=== PATIENT | male | born 1960 | race Caucasian/White ===

== ENCOUNTER 2020-07-10 14:47 | Outpatient (REF) | payer BC, OTHER, SELFPAY | END 2020-07-10 14:48 | disposition home or self-care (01) | LOC: HO.LAB 14:47 | PROVIDERS: Visit Provider Internal Medicine | DX: Z20.828 Contact with and (suspected) exposure to other viral communicable diseases (principal) | CPT/HCPCS: C9803; U0003 ==

== ENCOUNTER 2022-11-22 01:19 | Emergency (ER) | payer OTHER, SELFPAY ==
--- NOTE | ~2022-11-22 | CT_ITS ---
EXAMINATION: CT ABDOMEN AND PELVIS WITHOUT CONTRAST CLINICAL INFORMATION: Left flank pain COMPARISON: 12/28/2016 TECHNIQUE: Multidetector volumetric imaging was performed from the superior aspect of the liver through the pubic symphysis. Sagittal and coronal reformatted images were obtained on the technologist's workstation. This CT examination was performed using dose optimization techniques as appropriate, variously including the following: *Automated exposure control *Adjustment of mA and/or kV according to patient size (this includes techniques or standardized protocols for targeted exams where dose is matched to indication/reason for exam; i.e. extremities or head) *Use of iterative reconstruction technique DLP: 740 mGy-cm FINDINGS: LUNG BASES: The visualized lung bases are unremarkable. LIVER, GALLBLADDER, AND BILIARY TREE: The liver demonstrates hypoattenuation consistent with steatosis. No focal hepatic lesion or biliary ductal dilatation is identified. The gallbladder is unremarkable. PANCREAS: Unremarkable. SPLEEN: Unremarkable. ADRENAL GLANDS: Unremarkable. KIDNEYS AND URETERS: There is a 3 mm calculus at the left ureterovesicular junction with minimal hydronephrosis and associated perinephric stranding. No right hydronephrosis. Few bilateral renal cysts are noted; no follow-up recommended. BLADDER: Mildly distended and grossly unremarkable. GASTROINTESTINAL TRACT: No evidence of bowel obstruction or significant wall thickening. No free fluid or free air is seen. ABDOMINAL WALL: No significant hernia is appreciated. LYMPH NODES: Normal. VASCULAR: Moderate atherosclerotic calcifications. PELVIC VISCERA: Unremarkable. OSSEOUS STRUCTURES: Multilevel degenerative endplate changes in the spine. CT/CT abdomen pelvis wo IV con IMPRESSION: 1. Left ureterovesicular junction calculus measuring 3 mm with minimal hydronephrosis. 2. Hepatic steatosis.
[2022-11-22 01:21] VITALS: BP 179/80; PULSE 64; RESP 18; TEMP 36.8; O2SAT 95; BMI 27.8
[2022-11-22 02:31] LABS: MANUAL DIFF FLAG NO
[2022-11-22 02:35] LABS: Basophils Percent Auto 0.4 % (0-2); Eosinophils Absolute Auto 0.2 X10*3/uL (0.0-0.4); Eosinophils Percent Auto 1.7 % (0-4); Hematocrit 44.8 % (42.0-52.0); Hemoglobin 16.2 g/dl (14.0-18.0); Imm Gran Abs Auto 0.06 X10*3/uL (0.00-0.03); Imm Gran Pct Auto 0.6 % (0.0-0.4); Lymphocytes Percent Auto 18.2 % (20-40); Mean Corpuscular HGB Conc 36.2 g/dl (31.0-36.0); Mean Corpuscular Hemoglobin 33.3 pg (27.0-33.0); Mean Corpuscular Volume 92.2 fL (80.0-98.0); Mean Platelet Volume 10.1 fL (9.4-12.4); Monocytes Absolute Auto 1.1 X10*3/uL (0.1-1.2); Monocytes Percent Auto 9.6 % (2-11); Neutrophils Absolute Auto 7.6 x10*3/uL (2.0-8.3); Neutrophils Percent Auto 69.5 % (45-73); Platelet Count 211 X10*3/uL (160-400); Red Blood Count 4.86 X10*6/uL (4.60-5.80); Red Cell Distribution Width 11.7 % (11.0-16.0); White Blood Count 10.9 X10*3/uL (4.8-10.8)
--- OUTSIDE RECORDS SUMMARY | 2022-11-22 02:35 | XMS_ITS | Continuity of Care Document ---
Author Name Unknown Organization [facility] Address [address] [place] [address]- Care Team Providers Care Consultant Internship Name Role Phone Cem TERRELL, Reynaldo Rebolledo Primary Care Physician [phone] Encounter [facility] [place] Date(s): 07/11/20 - 08/10/20 [facility] [address] [place] [id number] Allergies, Adverse Reactions, Alerts Substance Reaction Severity Status gabapentin Persistent Moderate Active Immunizations Given and Recorded Vaccine Date Status Refusal Reason influenza virus vaccine, inactivated 06/23/11 Give n Medications acetaminophen 325 mg oral tablet 650 mg, By Mouth, Every 4 hours, PRN, Refills 0, Maintenance, Headache, 09/24/18 14:25:37 EDT Start Date: 09/24/18 Status: Ordered Centrum Silver By Mouth, Daily, 0 Refills, Maintenance, 09/23/18 17:25:39 EDT Start Date: 09/23/18 Status: Ordered Colace sodium 100 mg oral capsule 100 mg, 1, capsule, By Mouth, 2 times a day, # 14 capsule, Refills 0, Tot. Refills 0, Maintenance, 09/24/18 14:01:01 EDT, Print Requisition Start Date: 09/24/18 Stop Date: 10/01/18 Status: Ordered fenofibrate 40 mg oral tablet 4 tablet = 160 mg, By Mouth, Daily, # 60 tablet, 0 Refills, Maintenance, 09/23/18 17:27:51 EDT, Tablet Start Date: 09/23/18 Status: Ordered levothyroxine 0.025 mg oral tablet 1 tablet = 25 mcg, By Mouth, Daily, # 30 tablet, 0 Refills, Maintenance, 09/23/18 17:26:05 EDT, Tablet Start Date: 09/23/18 Status: Ordered levothyroxine 0.1 mg oral tablet 1 tablet = 100 mcg, By Mouth, Daily, # 30 tablet, 0 Refills, Maintenance, 09/23/18 17:27:00 EDT, Tablet Start Date: 09/23/18 Status: Ordered Levoxyl 200 mcg, By Mouth, Daily, Maintenance, 06/21/11 12:28:38 Start Date: 06/21/11 Status: Ordered meclizine 12.5 mg oral tablet See Instructions, PRN for dizziness, 1/2 tablet - up to three times a day - only take as needed, # 20 tablet, 0 Refills, Maintenance, 05/13/19 16:15:44 EDT, Tablet Start Date: 05/13/19 Status: Ordered Nexium Capsule 20 mg, By Mouth, Daily, Refills 0, Maintenance, 09/23/18 17:28:34 EDT Start Date: 09/23/18 Status: Ordered Omeprazole = 20 mg, By Mouth, Daily, 0 Refills, Maintenance Start Date: 06/21/11 Status: Ordered Outpatient Occupational Therapy Outpatient Occupational Therapy, See Instructions, # 1 each, Refills 0, Tot. Refills 0, Maintenance, Outpatient Occupational Therapy, 09/24/18 13:56:46 EDT, Compound Start Date: 09/24/18 Status: Ordered Outpatient Physical Therapy Outpatient Physical Therapy, See Instructions, # 1 each, Refills 0, Tot. Refills 0, Maintenance, Outpatient Physical Therapy, 09/24/18 13:56:42 EDT, Compound Start Date: 09/24/18 Status: Ordered Outpatient Speech Therapy Outpatient Speech Therapy, See Instructions, # 1 each, Refills 0, Tot. Refills 0, Maintenance, Outpatient Speech Therapy, 09/24/18 13:56:49 EDT, Compound Start Date: 09/24/18 Status: Ordered Probiotic Formula By Mouth, Daily, 0 Refills, Maintenance, 09/16/19 16:09:00 EST Start Date: 09/16/19 Status: Ordered topiramate 25 mg oral capsule See Instructions, 2 capsules by mouth twice daily, # 120 capsule, 3 Refills, Maintenance, 01/01/19 13:08:10 EDT, Capsule Start Date: 01/01/19 Status: Ordered TriCor 48 mg oral tablet 1 tablet = 48 mg, By Mouth, Daily, 0 Refills, Maintenance Start Date: 06/21/11 Status: Ordered Vitamin B2 By Mouth, Daily, 0 Refills, Maintenance, 09/16/19 16:09:00 EST Start Date: 09/16/19 Status: Ordered Problem List Condition Effective Dates Status Health Status Inform ant Acute adjustment disorder wi th mixed anxiety and depressed mood(Confirmed) Active Sleep disturbance(Confirmed) Active Dizziness(Confirmed) Active MCI (mild cognitive impairment)(Confirmed) Active Myofascial pain(Confirmed) Active Arm numbness(Confirmed) Active Post-traumatic headache(Confirmed) Active Prolapsed cervical intervert ebral disc(Confirmed) Active Mild TBI(Confirmed) Active Social History Social History Type Response Sex Male
--- OUTSIDE RECORDS SUMMARY | 2022-11-22 02:35 | XMS_ITS | Continuity of Care Document ---
Author Name Unknown Organization [facility] Address [address] [place] [address]- Care Team Providers Care Master Of Ceremonies Name Role Phone Cem TERRELL, Reynaldo Rebolledo Primary Care Physician [id number] Date(s): 11/25/19 - 12/02/19 [facility] [address] [place] [address]- [facility] Attending Physician: Kevin Rogers MD Referring Physician: Reynaldo Priest MD Allergies, Adverse Reactions, Alerts Substance Reaction Severity [...]
--- OUTSIDE RECORDS SUMMARY | 2022-11-22 02:35 | XMS_ITS | Continuity of Care Document ---
Author Name Unknown Organization [facility] lt Address [address] [place] [address]- Care Team Providers Care Apparel Rental Clerk Name Role Phone Alem Payton Primary Care Physician Encounter [facility] R [id number] Date(s): 04/03/22 - 05/03/22 [facility] Adult [address] [place] [address]- Attending Physician: Admtr, Ar8 Admitting Physician: Admtr, Ar8 Referring Physician: Admtr, Ar8 Allergies, Adverse Reactions, Alerts Substance Reaction Severity Status gabapentin Persistent Moderate Active Immunizations Given and Recorded Vaccine Date Status Refusal Reason SARS-CoV-2 (COVID-19) mRNA BNT-162b2 vac 07/05/21 Recorded SARS-CoV-2 (COVID-19) mRNA BNT-162b2 vac 11/10/20 Recorded SARS-CoV-2 (COVID-19) mRNA BNT-162b2 vac 10/20/20 Recorded influenza virus vaccine, inactivated 06/23/11 Give n Medications amlodipine-benazepril 5 mg-20 mg oral capsule 1 capsule, By Mouth, Daily, # 90 capsule, 3 Refills, Maintenance, 03/29/21 11:14:00 EDT, Capsule, [facility] # [id number], Partial fill upon patient request if the prescription is for a schedule II opioid drug., 1 capsule By Mouth Daily, 169.6, cm, 03/14... Start Date: 03/29/21 Status: Ordered Centrum Silver By Mouth, Daily, 0 Refills, Maintenance, 09/23/18 17:25:39 EDT Start Date: 09/23/18 Status: Ordered fenofibrate 160 mg oral tablet 1 tablet, By Mouth, Daily, # 30 tablet, 5 Refills, [facility] #[id number], 169.6, cm, 11/28/21 14:37:00 EDT, Height Start Date: 02/28/22 Status: Ordered indapamide 1.25 mg oral tablet 1 tablet = 1.25 mg, By Mouth, Daily in AM, # 90 tablet, 3 Refills, Maintenance, 04/12/21 9:59:00 EDT, Tablet, [facility] # 302, Partial fill upon patient request if the prescription is for a schedule II opioid drug., 169.6, cm, 03/29/21 11:33:00... Start Date: 04/12/21 Status: Ordered levothyroxine 0.025 mg oral tablet See Instructions, 1 tablet By Mouth ON FRIDAY AND FRIDAY. TAKE WITH 200 MCG TABLETS FOR A TOTAL OF 225 MCG ON MONDAYS AND THURSDAYS., # 12 tablet, 11 Refills, Maintenance, 02/14/22 15:13:00 EDT, Tablet, [facility] # 302, Partial fill upon benjamin... Start Date: 02/14/22 Status: Ordered levothyroxine 200 mcg (0.2 mg) oral capsule 1 capsule = 200 mcg, By Mouth, Daily, # 90 capsule, 3 Refills, Maintenance, 02/14/22 17:26:00 EDT, Capsule, [facility] # 302, Partial fill upon patient request if the prescription is for a schedule II opioid drug., 169.6, cm, 11/28/21 14:37:00 ED... Start Date: 02/14/22 Status: Ordered Levoxyl 200 mcg, By Mouth, Daily, Maintenance, 06/21/11 12:28:38 Start Date: 06/21/11 Status: Ordered omeprazole 20 mg oral enteric coated capsule 1 capsule, By Mouth, Daily, # 90 capsule, 0 Refills, [facility] #[id number], 169.6, cm, 11/28/21 14:37:00 EDT, Height Start Date: 02/07/22 Status: Ordered sildenafil 25 mg oral tablet 1 tablet = 25 mg, By Mouth, Daily, 1 hour before sexual activity, # 10 tablet, 3 Refills, Maintenance, 04/09/22 16:33:00 EDT, Tablet, [facility] # 302, Partial fill upon patient request if the prescription is for a schedule II opioid drug., 169.6... Start Date: 04/09/22 Status: Ordered Vitamin C By Mouth, Daily, 0 Refills, Maintenance, 03/29/21 10:53:00 EDT, Partial fill upon patient request if the prescription is for a schedule II opioid drug. Start Date: 03/29/21 Status: Ordered Vitamin D3 oral tablet 1 tablet = 10 mcg, By Mouth, Daily, 0 Refills, Maintenance, 03/29/21 10:54:00 EDT, Partial fill upon patient request if the prescription is for a schedule II opioid drug. Start Date: 03/29/21 Status: Ordered Problem List Condition Confirmation Course Effective Dates Status Health Status Informant Acute adjustment disorder with mixed anxiety and depressed mood Confirmed Active Sleep disturbance Confirmed Active Not currently working due to disabled status Confirmed Active Chronic GERD Confirmed Active Graves' disease in remission Confirmed Active Hypertension Confirmed Active Hypertriglyceridemia Confirmed Active Hypothyroidism Confirmed Active MCI (mild cognitive impairment) Confirmed Active Myofascial pain Confirmed Active Arm numbness Confirmed Active Obese class II Confirmed Active Post-traumatic headache Confirmed Active Prediabetes Confirmed Active Prolapsed cervical intervertebral disc Confirmed Active Mild TBI Confirmed Active Social History Social History Type Response Smoking Status Cigars or pipes uriel y within last 30 days; Use: Cigars 2 a week Quit tobacco 15 years ago entered on: 03/29/21 Sex Male Patient Care team information Personnel Name: Alem Payton Address: Address: [address] [place] [id number]
--- OUTSIDE RECORDS SUMMARY | 2022-11-22 02:35 | XMS_ITS | Continuity of Care Document ---
Author Name Unknown Organization [facility] lt Address [address] [place] [address]- Care Team Providers Care Equipment Tech Name Role Phone Alem Payton Primary Care Physician Encounter [facility] [place] Date(s): 04/08/22 - 05/08/22 [facility] Adult [address] [place] [address]- Allergies, Adverse Reactions, Alerts Substance Reaction Severity [...] 3 Refills, Maintenance, 03/29/21 11:14:00 EDT, Capsule, [facility] # 302, Partial fill upon patient request if the prescription is for a schedule II opioid drug., 1 capsule By Mouth Daily, 169.6, cm, 03/14... Start Date: 03/29/21 Status: Ordered Centrum Silver By Mouth, Daily, 0 Refills, Maintenance, 09/23/18 17:25:39 EDT Start Date: 09/23/18 Status: Ordered fenofibrate 160 mg oral tablet 1 tablet, By Mouth, Daily, # 30 tablet, 5 Refills, [facility] #[id number], 169.6, cm, 11/28/21 14:37:00 EDT, Height Start Date: 02/28/22 Status: Ordered indapamide 1.25 mg oral tablet 1 tablet = 1.25 mg, By Mouth, Daily in AM, # 90 tablet, 3 Refills, Maintenance, 04/12/21 9:59:00 EDT, Tablet, [facility] # [facility], Partial fill upon patient [...] 11 Refills, Maintenance, 02/14/22 15:13:00 EDT, Tablet, [facility] # 302, Partial fill upon benjamin... Start Date: 02/14/22 Status: Ordered levothyroxine 200 mcg (0.2 mg) oral capsule 1 capsule = 200 mcg, By Mouth, Daily, # 90 capsule, 3 Refills, Maintenance, 02/14/22 17:26:00 EDT, Capsule, [facility] # 302, Partial fill upon patient request if the prescription is for a schedule II opioid drug., 169.6, cm, 11/28/21 14:37:00 ED... Start Date: 02/14/22 Status: Ordered Levoxyl 200 mcg, By Mouth, Daily, Maintenance, 06/21/11 12:28:38 Start Date: 06/21/11 Status: Ordered omeprazole 20 mg oral enteric coated capsule 1 capsule, By Mouth, Daily, # 90 capsule, 0 Refills, [facility] #[id number], 169.6, cm, 11/28/21 14:37:00 EDT, Height Start Date: 02/07/22 Status: Ordered sildenafil 25 mg oral tablet 1 tablet = 25 mg, By Mouth, Daily, 1 hour before sexual activity, # 10 tablet, 3 Refills, Maintenance, 04/09/22 16:33:00 EDT, Tablet, [facility] # 302, Partial fill upon patient [...] information Personnel Name: Alem Payton Address: Address: [address] [place] [id number]
--- OUTSIDE RECORDS SUMMARY | 2022-11-22 02:35 | XMS_ITS | Continuity of Care Document ---
Author Name Unknown Organization [facility] lt Address [address] [place] [address]- Care Team Providers Care Audio/Visual Manager Name Role Phone Alem Payton Primary Care Physician [phone] Encounter [facility] [place] Date(s): 11/28/21 - 12/28/21 [facility] Adult [address] [place] [address]- Allergies, Adverse Reactions, Alerts Substance Reaction Severity Status gabapentin Persistent Moderate Active Immunizations Given and Recorded Vaccine Date Status Refusal Reason SARS-CoV-2 (COVID-19) mRNA BNT-162b2 vac 11/10/20 Recorded SARS-CoV-2 (COVID-19) mRNA BNT-162b2 vac 10/20/20 Recorded influenza virus vaccine, inactivated 06/23/11 Give n Medications amlodipine-benazepril 5 mg-20 mg oral capsule 1 capsule, By Mouth, Daily, # 90 capsule, 3 Refills, Maintenance, 03/29/21 11:14:00 EDT, Capsule, [facility] # 302, Partial fill upon patient request if the prescription is for a schedule II opioid drug., 1 capsule By Mouth Daily, 169.6, cm, 03/14... Start Date: 03/29/21 Status: Ordered Centrum Silver By Mouth, Daily, 0 Refills, Maintenance, 09/23/18 17:25:39 EDT Start Date: 09/23/18 Status: Ordered fenofibrate 160 mg oral tablet 1 tablet = 160 mg, By Mouth, Daily, # 30 tablet, 3 Refills, Maintenance, 11/07/21 16:35:00 EDT, Tablet, [facility] # 302, Partial fill upon patient request if the prescription is for a schedule II opioid drug., 169.6, cm, 03/29/21 11:33:00 EDT, H... Start Date: 11/07/21 Status: Ordered indapamide 1.25 mg oral tablet 1 tablet = 1.25 mg, By Mouth, Daily in AM, # 90 tablet, 3 Refills, Maintenance, 04/12/21 9:59:00 EDT, Tablet, [facility] # 302, Partial fill upon patient request if the prescription is for a schedule II opioid drug., 169.6, cm, 03/29/21 11:33:00... Start Date: 04/12/21 Status: Ordered levothyroxine 0.025 mg oral tablet See Instructions, 1 tablet By Mouth ON FRIDAY AND FRIDAY. TAKE WITH 200 MCG TABLETS FOR A TOTAL OF 225 MCG ON MONDAYS AND THURSDAYS., # 12 tablet, 11 Refills, Maintenance, 05/03/21 17:08:00 EDT, Tablet, [facility] # 302, Partial fill upon benjamin... Start Date: 05/03/21 Status: Ordered Levoxyl 200 mcg, By Mouth, Daily, Maintenance, 06/21/11 12:28:38 Start Date: 06/21/11 Status: Ordered Omeprazole = 20 mg, By Mouth, Daily, 0 Refills, Maintenance Start Date: 06/21/11 Status: Ordered Vitamin C By Mouth, Daily, [...] Date: 03/29/21 Status: Ordered Problem List Condition Effective Dates Status Health Status Inform ant Acute adjustment disorder wi th mixed anxiety and depressed mood(Confirmed) Active Sleep disturbance(Confirmed) Active Not currently working due to disabled status(Confirmed) Active Graves' disease in remission(Confirmed) Active Hypertension(Confirmed) Active Hypothyroidism(Confirmed) Active MCI (mild cognitive impairment)(Confirmed) Active Myofascial pain(Confirmed) Active Arm numbness(Confirmed) Active Obese class II(Confirmed) Active Post-traumatic headache(Confirmed) Active Prolapsed cervical intervert ebral disc(Confirmed) Active Mild TBI(Confirmed) Active Social History Social History Type Response Smoking Status Cigars or pipes uriel y within last 30 days; Use: Cigars 2 a week Quit tobacco 15 years ago entered on: 03/29/21 Sex Male
--- OUTSIDE RECORDS SUMMARY | 2022-11-22 02:35 | XMS_ITS | Continuity of Care Document ---
Author Name Unknown Organization [facility] lt Address [address] [place] [address]- Care Team Providers Care Vehicle Service Agent Name Role Phone Alem Payton Primary Care Physician Encounter [facility] [place] Date(s): 11/28/21 - 12/05/21 [facility] Adult [address] [place] [address]- Attending Physician: Pete Garces MD Referring Physician: Alem Payton Allergies, Adverse Reactions, Alerts Substance Reaction Severity [...] 3 Refills, Maintenance, 03/29/21 11:14:00 EDT, Capsule, [facility] # 302, Partial fill upon patient request if the prescription is for a schedule II opioid drug., 1 capsule By Mouth Daily, 169.6, cm, 03/14... Start Date: 03/29/21 Status: Ordered Centrum Silver By Mouth, Daily, 0 Refills, Maintenance, 09/23/18 17:25:39 EDT Start Date: 09/23/18 Status: Ordered ciprofloxacin 0.2% otic solution 1 application, Ears, Both, Every 12 hours, for 7 days, # 28 each, 0 Refills, Acute 12/06/21 9:00:00EDT, 11/29/21 9:00:00 EDT, Solution, [facility] # 302, Partial fill upon patient request if the prescription is for a schedule II opioid drug., 1... Start Date: 11/29/21 Stop Date: 12/06/21 Status: Ordered fenofibrate 160 mg oral tablet 1 tablet = 160 mg, By Mouth, Daily, # 30 tablet, 3 Refills, Maintenance, 11/07/21 16:35:00 EDT, Tablet, [facility] # 302, Partial fill upon patient request if the prescription is for a schedule II opioid drug., 169.6, cm, 03/29/21 11:33:00 EDT, H... Start Date: 11/07/21 Status: Ordered indapamide 1.25 mg oral tablet 1 tablet = 1.25 mg, By Mouth, Daily in AM, # 90 tablet, 3 Refills, Maintenance, 04/12/21 9:59:00 EDT, Tablet, [facility] # 302, Partial fill upon patient [...] 11 Refills, Maintenance, 05/03/21 17:08:00 EDT, Tablet, [facility] # 302, Partial fill upon benjamin... [...] intervert ebral disc(Confirmed) Active Mild TBI(Confirmed) Active Vital Signs Most recent to oldest [Reference Range]: 1 Height 169.6 cm (11/28/21 2:37 PM) Weight 105.8 kg (11/28/21 2:37 PM) Oxygen Saturation [94-100 %] 98 % (11/28/21 2:37 PM) Pulse Rate [55-90 bpm] 65 bpm (11/28/21 2:37 PM) Body Mass Index [18.5-24.99] 36.78 *>HHI* (11/28/21 2:37 PM) Blood Pressure [90-138/55-84 mm Hg] 147/ 64mm Hg *H* (11/28/21 2:37 PM) Temperature [96.8-100.4 DegF] 98.9 DegF (11/28/21 2:37 PM) Blood pressure sites Arm, right (11/28/21 2:37 PM) Temperature Route Temporal (11/28/21 2:37 PM) Weight Obtained Via Standing scale (11/28/21 2:37 PM) Social History Social History Type Response Smoking Status Cigars or pipes uriel y within last 30 days; Use: Cigars 2 a week Quit tobacco 15 years ago entered on: 03/29/21 Sex Male
--- OUTSIDE RECORDS SUMMARY | 2022-11-22 02:35 | XMS_ITS | Continuity of Care Document ---
Author Name Unknown Organization [facility] Address [address] [place] [address]- Care Team Providers Care Janitorial Services Supervisor Name Role Phone Cem TERRELL, Reynaldo Rebolledo Primary Care Physician [facility] Date(s): 01/27/19 - 06/27/[address] [address]- [facility] Discharge Disposition: A-D/C Home Attending Physician: Reynaldo Priest MD Admitting Physician: Reynaldo Priest MD Referring Physician: Reynaldo Priest MD Allergies, [...] EDT, Compound Start Date: 09/24/18 Status: Ordered topiramate 25 mg oral capsule See Instructions, 2 capsules by mouth twice daily, # 120 capsule, 3 Refills, Maintenance, 01/01/19 13:08:10 EDT, Capsule Start Date: 01/01/19 Status: Ordered TriCor 48 mg oral tablet 1 tablet = 48 mg, By Mouth, Daily, 0 Refills, Maintenance Start Date: 06/21/11 Status: Ordered Problem List Condition Effective Dates [...]
--- OUTSIDE RECORDS SUMMARY | 2022-11-22 02:35 | XMS_ITS | Continuity of Care Document ---
Author Name Unknown Organization [facility] lt Address [address] [place] [address]- Care Team Providers Care Dredge Hand Name Role Phone Alem Payton Primary Care Physician [place] [facility] [place] 07/31/22 - 08/07/22 [facility] Adult [address] [place] [address]- Encounter Diagnosis Hypertension(Discharge Diagnosis) - 07/31/22 Left knee pain(Discharge Diagnosis) - 07/31/22 Attending Physician: Jason Tariq Allergies, Adverse Reactions, Alerts Substance Reaction Severity [...] Daily, # 90 capsule, 3 Refills, Maintenance, 07/24/22 8:47:00 EST, Capsule, [facility] # [facility], Partial fill upon patient request if the prescription is for a schedule II opioid drug., 1 capsule By Mouth Daily, 169.6, cm, 06/12... Start Date: 07/24/22 Status: Ordered Centrum Silver By Mouth, Daily, 0 Refills, Maintenance, 09/23/18 17:25:39 EDT Start Date: 09/23/18 Status: Ordered fenofibrate 160 mg oral tablet 1 tablet, By Mouth, Daily, # 30 tablet, 5 Refills, [facility] #[id number], 169.6, cm, 11/28/21 14:37:00 EDT, Height Start Date: 02/28/22 Status: Ordered indapamide 1.25 mg oral tablet 1 tablet, By Mouth, Daily in AM, # 90 tablet, 0 Refills, Maintenance, 05/20/22 15:10:00 EST, [facility] #[id number], 169.6, cm, 04/03/22 10:42:00 EDT, Height Start Date: 05/20/22 Status: Ordered levothyroxine 0.025 mg oral tablet See Instructions, 1 tablet By Mouth ON FRIDAY AND FRIDAY. TAKE WITH 200 MCG TABLETS FOR A TOTAL OF 225 MCG ON MONDAYS AND THURSDAYS., # 12 tablet, 11 Refills, Maintenance, 02/14/22 15:13:00 EDT, Tablet, [facility] # [facility], Partial fill upon benjamin... Start Date: 02/14/22 Status: Ordered levothyroxine 200 mcg (0.2 mg) oral capsule 1 capsule = 200 mcg, By Mouth, Daily, # 90 capsule, 3 Refills, Maintenance, 02/14/22 17:26:00 EDT, Capsule, [facility] # [facility], Partial fill upon patient request if the prescription is for a schedule II opioid drug., 169.6, cm, 11/28/21 14:37:00 ED... Start Date: 02/14/22 Status: Ordered Levoxyl 200 mcg, By Mouth, Daily, Maintenance, 06/21/11 12:28:38 Start Date: 06/21/11 Status: Ordered omeprazole 20 mg oral enteric coated capsule 1 capsule, By Mouth, Daily, # 90 capsule, 0 Refills, Maintenance, 05/20/22 15:10:00 EST, [facility] #[id number], 169.6, cm, 04/03/22 10:42:00 EDT, Height Start Date: 05/20/22 Status: Ordered sildenafil 25 mg oral tablet 1 tablet = 25 mg, By Mouth, Daily, 1 hour before sexual activity, # 10 tablet, 3 Refills, Maintenance, 04/09/22 16:33:00 EDT, Tablet, [facility] # [facility], Partial fill upon patient [...] pain Confirmed Active Arm numbness Confirmed Active Post-traumatic headache Confirmed Active Prediabetes Confirmed Active Prolapsed cervical intervertebral disc Confirmed Active Severe obesity (BMI 35.0-39.9) with comorbidity Confirmed Active Mild TBI Confirmed Active Diagnosis Diagnosis Type Effective Dates Health Status Cl inical Service Informant Hypertension Discharge Diagnosis 07/31/22 Left knee pain Discharge Diagnosis 07/31/22 Vital Signs Most recent to oldest [Reference Range]: 1 2 3 Height 169.6 cm (07/31/22 1:56 PM) 169.6 cm (07/31/22 1:33 PM) 169.6 cm (07/31/22 1:23 PM) Weight 104.5 kg (07/31/22 1:23 PM) Oxygen Saturation [94-100 %] 98 % (07/31/22 1:23 PM) Pulse Rate [55-90 bpm] 58 bpm (07/31/22 1:23 PM) Body Mass Index [18.5-24.99 kg/m2] 36.33 kg/m2 *>HHI* (07/31/22 1:23 PM) Blood Pressure [90-138/55-84 mm Hg] 138/62mm Hg (07/31/22 1:56 PM) 158/66mm Hg *H* (07/31/22 1:33 PM) 167/77mm Hg *H* (07/31/22 1:23 PM) Temperature [96.8-100.4 DegF] 97.6 DegF (07/31/22 1:23 PM) Mode of Delivery (Oxygen) Room air (07/31/22 1:23 PM) Blood pressure sites Arm, left (07/31/22 1:33 PM) Arm, left (07/31/22 1:23 PM) Temperature Route Temporal (07/31/22 1:23 PM) Weight Obtained Via Standing scale (07/31/22 1:23 PM) Social History Social History Type Response Smoking Status Cigars or pipes uriel y within last 30 days; Use: Cigars 2 a week Quit tobacco 15 years ago entered on: 03/29/21 Sex Male Note * Olesya Dietz: PERFORM, SIGN, VERIFY Event Display: Patient Education/Instruction Authored Date: [id number] [facility] *BMP So David Baca Clinical Summary Name MELIDA WHITE Age 62 Years 1960 PCP Skip JOHNSON, Alem Phan PCP Visit Date 07/31/2022 13:18:00 Additional Instructions: Scheduled Appointments?? Future Appointments ?No Future Appointments Scheduled Follow-Up Instructions ?? Diagnosis Essential (primary) hypertension Medications: Please continue your medications until treatment is completed or stopped by your provider. Discuss any questions related to medications with your provider. Medications to Continue with No Changes These medications were not printed or sent to your pharmacy Amlodipine-Benazepril (amlodipine-benazepril 5 mg-20 mg oral capsule) 1 capsule Oral Daily. Refills: 3. Next Dose: Ascorbic Acid (Vitamin C) Oral Daily. Next Dose: Cholecalciferol (Vitamin D3 oral tablet) 1 tab(s) Oral Daily. Next Dose: Fenofibrate (fenofibrate 160 mg oral tablet) 1 tab(s) Oral Daily. Refills: 5. Next Dose: Indapamide (indapamide 1.25 mg oral tablet) 1 tab(s) Oral Daily in the morning. Refills: 0. Next Dose: Levothyroxine (levothyroxine 0.025 mg oral tablet) 1 tablet By Mouth ON FRIDAY AND FRIDAY. TAKE WITH 200 MCG TABLETS FOR A TOTAL OF 225 MCG ON MONDAYS AND THURSDAYS.. Refills: 11. Next Dose: Levothyroxine (levothyroxine 200 mcg (0.2 mg) oral capsule) 1 capsule Oral Daily. Refills: 3. Next Dose: Levothyroxine (Levoxyl) 200 Microgram Oral Daily. Next Dose: Multivitamin With Minerals (Centrum Silver) Oral Daily. Next Dose: Omeprazole (omeprazole 20 mg oral enteric coated capsule) 1 capsule Oral Daily. Refills: 0. Next Dose: Sildenafil (sildenafil 25 mg oral tablet) 1 tab(s) Oral Daily. 1 hour before sexual activity. Refills: 3. Next Dose: Allergy Info:?? gabapentin Medications Given This Visit Future Orders ?No future orders Vital Signs Height 169.6 cm Weight 104.5 kg BMI 36.33 kg/m2 Blood Pressure 138 mm Hg/62 mm Hg Temperature 97.6 DegF Pulse Rate 58 bpm Respiratory Rate 02 Sat Mode of Delivery 98 %/Room air You can now view a summary of your hospital visit from the comfort of your home through a free online portal called [employer]. [employer] is a website that allows you to securely view your medical information including discharge summary, medications and follow-up visits. ??You can alsosend a secure electronic message to your doctor???s office to request appointments, renew medications or just ask a question. You can enroll at [email or web address] or register during your next office visit. Disclaimer:?? The information provided is of a general nature and is intended to be used in conjunction with the recommendations and advice of your health care practitioner. ??Every effort has been made to ensure that the information provided is accurate and complete at the time it is provided to you however, as your needs change, or, as new ??information becomes available, different or additional instructions may be required. If you have questions, please consult with your primary care provider or pharmacist, as appropriate. ??This information is not intended to serve as substitution for assessment and evaluation by a qualified health care provider. If you do not have a primary care provider, you may find a [facility] provider by calling [facility] [employer] Link at [phone]. For information about the plan of care including goals and instructions for your diagnosis, please see the patient education orders section of this document. Patient Education Materials?? The content of this educational material or handout may have been modified, supplemented, or adapted from its original content and format to support your individualized medical care. Patient Care team information Care Team Personnel Name: Ese Rodríguez RN Position: [facility] RN Member Role: Primary Care Nurse Name: Sharee Guillen Position: [facility] Outreach Member Role: Lifetime Consulting Physician Name: Mattie Gonzalez RN Position: [facility] Rad RN Member Role: Primary Care Nurse Name: Alem Payton Position: [facility] PCO Associate Professional Member Role: PCP Address: Address: [address] [place] [address]- Care Team Related Persons Name: JACKLYN BAILEY Address: [place] [address] Name: JACKLYN WHITE Address: home [address] [place] [id number]
--- OUTSIDE RECORDS SUMMARY | 2022-11-22 02:35 | XMS_ITS | Continuity of Care Document ---
Author Name Unknown Organization [facility] lt Address [address] [place] [address]- Care Team Providers Care Syrup Maker Cook Name Role Phone Alem Payton Primary Care Physician Encounter [facility] [place] Date(s): 07/23/22 - 08/22/22 [facility] Adult [address] [place] [address]- Allergies, Adverse Reactions, Alerts Substance Reaction Severity [...] 3 Refills, Maintenance, 07/24/22 8:47:00 EST, Capsule, [facility] # 302, Partial fill upon patient request if the prescription is for a schedule II opioid drug., 1 capsule By Mouth Daily, 169.6, cm, 06/12... Start Date: 07/24/22 Status: Ordered Centrum Silver By Mouth, Daily, 0 Refills, Maintenance, 09/23/18 17:25:39 EDT Start Date: 09/23/18 Status: Ordered fenofibrate 160 mg oral tablet 1 tablet, By Mouth, Daily, # 30 tablet, 5 Refills, [facility] #[id number], 169.6, cm, 11/28/21 14:37:00 EDT, Height Start Date: 02/28/22 Status: Ordered indapamide 1.25 mg oral tablet 1 tablet, By Mouth, Daily in AM, # 90 tablet, 1 Refills, Maintenance, 08/15/22 13:15:00 EST, [facility], 169.6, cm, 07/31/22 13:56:00 EST, Height Start Date: 08/15/22 Status: Ordered levothyroxine 0.025 mg oral tablet See Instructions, 1 tablet By Mouth ON FRIDAY AND FRIDAY. TAKE WITH 200 MCG TABLETS FOR A TOTAL OF 225 MCG ON MONDAYS AND THURSDAYS., # 12 tablet, 11 Refills, Maintenance, 02/14/22 15:13:00 EDT, Tablet, [facility] # 302, Partial fill upon benjamin... Start Date: 02/14/22 Status: Ordered levothyroxine 200 mcg (0.2 mg) oral capsule 1 capsule = 200 mcg, By Mouth, Daily, # 90 capsule, 3 Refills, Maintenance, 02/14/22 17:26:00 EDT, Capsule, [facility] # 302, Partial fill upon patient request if the prescription is for a schedule II opioid drug., 169.6, cm, 11/28/21 14:37:00 ED... Start Date: 02/14/22 Status: Ordered Levoxyl 200 mcg, By Mouth, Daily, Maintenance, 06/21/11 12:28:38 Start Date: 06/21/11 Status: Ordered omeprazole 20 mg oral enteric coated capsule 1 capsule, By Mouth, Daily, # 90 capsule, 0 Refills, Maintenance, 08/15/22 13:15:00 EST, [facility] # 302, 169.6, cm, 07/31/22 13:56:00 EST, Height Start Date: 08/15/22 Status: Ordered sildenafil 25 mg oral tablet 1 tablet = 25 mg, By Mouth, Daily, 1 hour before sexual activity, # 10 tablet, 3 Refills, Maintenance, 04/09/22 16:33:00 EDT, Tablet, [facility] # 302, Partial fill upon patient [...] comorbidity Confirmed Active Mild TBI Confirmed Active Social History Social History Type Response Smoking Status Cigars or pipes uriel y within last 30 days; Use: Cigars 2 a week Quit tobacco 15 years ago entered on: 03/29/21 Sex Male Patient Care team information Care Team Personnel Name: Ese Rodríguez RN Position: [facility] RN Member Role: Primary Care Nurse Name: Sharee Guillen Position: [facility] Outreach Member Role: Lifetime Consulting Physician Name: Mattie Gonzalez RN Position: [facility] Malcolm RN Member Role: Primary Care Nurse Name: Alem Payton Position: [facility] PCO Associate Professional Member Role: PCP Address: Address: [address] [place] [address] Care Team Related Persons Name: JACKLYN BAILEY Address: [place] [address] Name: JACKLYN WHITE Address: home [address] [place] [id number]
--- OUTSIDE RECORDS SUMMARY | 2022-11-22 02:35 | XMS_ITS | Continuity of Care Document ---
Author Name Unknown Organization [facility] Address [address] [place] [address]- Care Team Providers Care Industrial Maintenance Electrician Name Role Phone Cem TERRELL, Reynaldo Rebolledo Primary Care Physician [phone] [place] [facility] [place] 07/[place]/[address] [address]- [facility] Attending Physician: Rachel Hunt Admitting Physician: Rachel Hunt Referring Physician: AdmtrRachel Allergies, Adverse Reactions, Alerts Substance Reaction Severity [...]
--- OUTSIDE RECORDS SUMMARY | 2022-11-22 02:35 | XMS_ITS | Continuity of Care Document ---
Author Name Unknown Organization [facility] lt Address [address] [place] [address]- Care Team Providers Care Cement Contractor Name Role Phone Alem Payton Primary Care Physician Encounter [facility] [place] Date(s): 07/31/22 - 08/30/22 [facility] Adult [address] [place] [address]- Attending Physician: Admtr, Ar8 Admitting Physician: Admtr, [...] 3 Refills, Maintenance, 07/24/22 8:47:00 EST, Capsule, [facility] # 302, Partial fill upon patient request if the prescription is for a schedule II opioid drug., 1 capsule By Mouth Daily, 169.6, cm, 06/12... Start Date: 07/24/22 Status: Ordered Centrum Silver By Mouth, Daily, 0 Refills, Maintenance, 09/23/18 17:25:39 EDT Start Date: 09/23/18 Status: Ordered fenofibrate 160 mg oral tablet 1 tablet, By Mouth, Daily, # 30 tablet, 5 Refills, [facility] #[id number], 169.6, cm, 11/28/21 14:37:00 EDT, Height Start [...] 11 Refills, Maintenance, 02/14/22 15:13:00 EDT, Tablet, [facility] # 302, Partial fill upon benjamin... Start Date: 02/14/22 Status: Ordered levothyroxine 200 mcg (0.2 mg) oral capsule 1 capsule = 200 mcg, By Mouth, Daily, # 90 capsule, 3 Refills, Maintenance, 02/14/22 17:26:00 EDT, Capsule, [facility] # 302, Partial fill upon patient request if the prescription is for a schedule II opioid drug., 169.6, cm, 11/28/21 14:37:00 ED... Start Date: 02/14/22 Status: Ordered Levoxyl 200 mcg, By Mouth, Daily, Maintenance, 06/21/11 12:28:38 Start Date: 06/21/11 Status: Ordered omeprazole 20 mg oral enteric coated capsule 1 capsule, By Mouth, Daily, # 90 capsule, 0 Refills, Maintenance, 08/15/22 13:15:00 EST, [facility] # 302, 169.6, cm, 07/31/22 13:56:00 EST, Height Start Date: 08/15/22 Status: Ordered sildenafil 25 mg oral tablet 1 tablet = 25 mg, By Mouth, Daily, 1 hour before sexual activity, # 10 tablet, 3 Refills, Maintenance, 04/09/22 16:33:00 EDT, Tablet, [facility] # 302, Partial fill upon patient [...] Team Personnel Name: Ese Rodríguez RN Position: [facility] RN Member Role: Primary Care Nurse Name: Sharee Guillen Position: [facility] Outreach Member Role: Lifetime Consulting Physician Name: Mattie Gonzalez RN Position: [facility] Malcolm RN Member Role: Primary Care Nurse Name: Alem Payton Position: [facility] PCO Associate Professional Member Role: PCP Address: Address: [address] [place] [address] Care Team Related Persons Name: JACKLYN BAILEY Address: [place] [address] Name: JACKLYN WHITE Address: home [address] [place] [address]
--- OUTSIDE RECORDS SUMMARY | 2022-11-22 02:35 | XMS_ITS | Continuity of Care Document ---
Author Name Unknown Organization [facility] [place] Address [address] [place] [address]- Care Team Providers Care Belting Inspector Name Role Phone Oscar Tian MD Primary Care Physician Encounter [facility] [place] Date(s): 03/29/21 - 04/05/21 [facility] [place] Adult [address] [place] [address]- Encounter Diagnosis Obesity(Discharge Diagnosis) - 03/29/21 Mild TBI(Discharge Diagnosis) - 03/29/21 Not currently working due to disabled status(Discharge Diagnosis) - 03/29/21 Post-traumatic headache(Discharge Diagnosis) - 03/29/21 Graves' disease in remission(Discharge Diagnosis) - 03/29/21 Hypothyroidism status post radioiodine ablation(Discharge Diagnosis) - 03/29/21 Hypertension(Discharge Diagnosis) - 03/29/21 General medical exam(Discharge Diagnosis) - 03/29/21 Prediabetes(Discharge Diagnosis) - 03/29/21 Attending Physician: Oscar Tian MD Allergies, Adverse Reactions, Alerts Substance Reaction [...] 3 Refills, Maintenance, 03/29/21 11:14:00 EDT, Capsule, [email or web address] # 302, Partial fill upon patient request if the prescription is for a schedule II opioid drug., 1 capsule By Mouth Daily, 169.6, cm, 03/14... Start Date: 03/29/21 Status: Ordered Centrum Silver By Mouth, Daily, 0 Refills, Maintenance, 09/23/18 17:25:39 EDT Start Date: 09/23/18 Status: Ordered fenofibrate 160 mg oral tablet 1 tablet = 160 mg, By Mouth, Daily, # 90 tablet, 0 Refills, Maintenance, 03/29/21 10:51:00 EDT, Tablet, Partial fill upon patient request if the prescription is for a schedule II opioid drug. Start Date: 03/29/21 Status: Ordered Levoxyl 200 mcg, By Mouth, [...] intervert ebral disc(Confirmed) Active Mild TBI(Confirmed) Active Diagnosis Diagnosis Type Effective Dates Health Status Clinical Service Informant Prediabetes Discharge Diagnosis 03/29/21 Hypothyroidism status post radioiodine ablation Discharge Diagnosis 03/29/21 Non-Specified Hypertension Discharge Diagnosis 03/29/21 Graves' disease in remission Discharge Diagnosis 03/29/21 General medical exam Discharge Diagnosis 03/29/21 Obesity Discharge Diagnosis 03/29/21 Mild TBI Discharge Diagnosis 03/29/21 Not currently working due to disabled status Discharge Diagnosis 03/29/21 Post-traumatic headache Discharge Diagnosis 03/29/21 Vital Signs Most recent to oldest [Reference Range]: 1 2 3 Height 169.6 cm (03/29/21 11:33 AM) 169.6 cm (03/29/21 10:42 AM) 169.6 cm (03/29/21 10:32 AM) Weight 108.2 kg (03/29/21 10:32 AM) Oxygen Saturation [94-100 %] 98 % (03/29/21 10:32 AM) Pulse Rate [55-90 bpm] 66 bpm (03/29/21 10:32 AM) Body Mass Index [18.5-24.99] 37.62 *>HHI* (03/29/21 10:32 AM) Blood Pressure [90-138/55-84 mm Hg] 124/76mm Hg (03/29/21 11:33 AM) 156/78mm Hg *H* (03/29/21 10:42 AM) 174/76mm Hg *H* (03/29/21 10:32 AM) Temperature [96.8-100.4 DegF] 98.1 DegF (03/29/21 10:32 AM) Mode of Delivery (Oxygen) Room air (03/29/21 10:32 AM) Blood pressure sites Arm, left (03/29/21 11:33 AM) Arm, left (03/29/21 10:42 AM) Arm, left (03/29/21 10:32 AM) Temperature Route Oral (03/29/21 10:32 AM) Weight Obtained Via Standing scale (03/29/21 10:32 AM) Social History Social History Type Response Smoking Status Cigars or pipes uriel y within last 30 days; Use: Cigars 2 a week Quit tobacco 15 years ago entered on: 03/29/21 Sex Male
--- OUTSIDE RECORDS SUMMARY | 2022-11-22 02:36 | XMS_ITS | Continuity of Care Document ---
Author Name Unknown Organization [facility] Address [address] [place] [address]- Care Team Providers Care Artificial Fly Tier Name Role Phone Cem TERRELL, Reynaldo Rebolledo Primary Care Physician [phone] [place] [facility] [place] 08/02/20 - 11/01/[address] [address] Attending Physician: Reynaldo Priest MD Allergies, Adverse Reactions, [...]
--- OUTSIDE RECORDS SUMMARY | 2022-11-22 02:36 | XMS_ITS | Continuity of Care Document ---
Author Name Unknown Organization [facility] ter Address [address] [place] [address]- Care Team Providers Care Record Keeper Name Role Phone Cem TERRELL, Reynaldo Rebolledo Primary Care Physician [phone] Encounter [facility] [place] Date(s): 07/21/20 - 07/22/[address] [address] Attending Physician: Reynaldo Priest MD Allergies, Adverse [...]
--- OUTSIDE RECORDS SUMMARY | 2022-11-22 02:36 | XMS_ITS | Continuity of Care Document ---
Author Name Unknown Organization [facility] ter Address [address] [place] [address]- Care Team Providers Care Product Safety Compliance Leader Name Role Phone Cem TERRELL, Reynaldo Rebolledo Primary Care Physician Encounter [facility] [place] Date(s): 11/13/19 - 02/12/[address] [address]- [facility] Attending Physician: Reynaldo Priest MD Allergies, Adverse [...]
--- OUTSIDE RECORDS SUMMARY | 2022-11-22 02:36 | XMS_ITS | Continuity of Care Document ---
Author Name Unknown Organization [facility] lt Address [address] [place] [address]- Care Team Providers Care Director Of Market Analysis Name Role Phone Alem Payton Primary Care Physician [place] [facility] [place](s): 06/12/22 - 07/12/22 [facility] Adult [address] [place] [address]- Attending Physician: Admtr, Ar8 Admitting Physician: Admtr, [...] 3 Refills, Maintenance, 03/29/21 11:14:00 EDT, Capsule, [facility] # 302, Partial fill upon patient request if the prescription is for a schedule II opioid drug., 1 capsule By Mouth Daily, 169.6, cm, 03/14... Start Date: 03/29/21 Status: Ordered Centrum Silver By Mouth, Daily, 0 Refills, Maintenance, 09/23/18 17:25:39 EDT Start Date: 09/23/18 Status: Ordered fenofibrate 160 mg oral tablet 1 tablet, By Mouth, Daily, # 30 tablet, 5 Refills, [facility] #[id number], 169.6, cm, 11/28/21 14:37:00 EDT, Height Start Date: 02/28/22 Status: Ordered indapamide 1.25 mg oral tablet 1 tablet, By Mouth, Daily in AM, # 90 tablet, 0 Refills, Maintenance, 05/20/22 15:10:[id number], 169.6, cm, 04/03/22 10:42:00 EDT, Height Start Date: 05/20/22 Status: Ordered levothyroxine 0.025 mg oral tablet See Instructions, 1 tablet By Mouth ON FRIDAY AND FRIDAY. TAKE WITH 200 MCG TABLETS FOR A TOTAL OF 225 MCG ON MONDAYS AND THURSDAYS., # 12 tablet, 11 Refills, Maintenance, 02/14/22 15:13:00 EDT, Tablet, [facility] # 302, Partial fill upon benjamin... Start Date: 02/14/22 Status: Ordered levothyroxine 200 mcg (0.2 mg) oral capsule 1 capsule = 200 mcg, By Mouth, Daily, # 90 capsule, 3 Refills, Maintenance, 02/14/22 17:26:00 EDT, Capsule, [facility] # 302, Partial fill upon patient request if the prescription is for a schedule II opioid drug., 169.6, cm, 11/28/21 14:37:00 ED... Start Date: 02/14/22 Status: Ordered Levoxyl 200 mcg, By Mouth, Daily, Maintenance, 06/21/11 12:28:38 Start Date: 06/21/11 Status: Ordered omeprazole 20 mg oral enteric coated capsule 1 capsule, By Mouth, Daily, # 90 capsule, 0 Refills, Maintenance, 05/20/22 15:10:00 EST, [facility] #[id number], 169.6, cm, 04/03/22 10:42:00 EDT, Height Start Date: 05/20/22 Status: Ordered sildenafil 25 mg oral tablet 1 tablet = 25 mg, By Mouth, Daily, 1 hour before sexual activity, # 10 tablet, 3 Refills, Maintenance, 04/09/22 16:33:00 EDT, Tablet, [facility] # 302, Partial fill upon patient [...] Team Personnel Name: Ese Rodríguez RN Position: [facility] RN Member Role: Primary Care Nurse Name: Sharee Guillen Position: [facility] Outreach Member Role: Lifetime Consulting Physician Name: Mattie Gonzalez RN Position: [facility] Malcolm RN Member Role: Primary Care Nurse Name: Alem Payton Position: [facility] PCO Associate Professional Member Role: PCP Address: Address: [address] [place] [address] Care Team Related Persons Name: JACKLYN BAILEY Address: [place] [address] Name: JACKLYN WHITE Address: home [address] [place] [id number]
--- OUTSIDE RECORDS SUMMARY | 2022-11-22 02:36 | XMS_ITS | Continuity of Care Document ---
Author Name Unknown Organization [facility] Address [address] [place] [address]- Care Team Providers Care Burnisher Name Role Phone Cem TERRELL, Reynaldo Rebolledo Primary Care Physician Encounter [facility] [place] Date(s): 01/25/20 - 02/01/20 [facility] [address] [place] [address]- [facility] Attending Physician: Bell Ross Referring Physician: Reynaldo Priest MD Allergies, Adverse [...] recent to oldest [Reference Range]: 1 Height 172.72 cm (01/25/20 10:48 AM) Weight 108.3 kg (01/25/20 10:48 AM) Oxygen Saturation [94-100 %] 97 % (01/25/20 10:48 AM) Pulse Rate [55-90 bpm] 57 bpm (01/25/20 10:48 AM) Body Mass Index [18.5-24.99] 36.3 *>HHI* (01/25/20 10:48 AM) Blood Pressure [90-138/55-84 mm Hg] 163/ 70mm Hg *H* (01/25/20 10:48 AM) Temperature [96.8-100.4 DegF] 97.8 DegF (01/25/20 10:48 AM) Blood pressure sites Arm, left (01/25/20 10:48 AM) Temperature Route Temporal (01/25/20 10:48 AM) Social History Social History Type Response Sex Male
--- OUTSIDE RECORDS SUMMARY | 2022-11-22 02:36 | XMS_ITS | Continuity of Care Document ---
Author Name Unknown Organization [facility] Address [address] [place] [address]- Care Team Providers Care Software Development Engineer Name Role Phone Cem TERRELL, Reynaldo Rebolledo Primary Care Physician [place] [facility] [place] Date(s): 07/19/19 - 07/19/[address] [address]- [facility] Discharge Disposition: A-D/C Home Attending [...]
--- OUTSIDE RECORDS SUMMARY | 2022-11-22 02:36 | XMS_ITS | Continuity of Care Document ---
Author Name Unknown Organization [facility] Address [address] [place] [address]- Care Team Providers Care Review Coordinator Name Role Phone Cem TERRELL, Reyanldo Rebolledo Primary Care Physician [place] [facility] [place] 06[place]17/19 - 06/27/19 [facility] [address] [place] [address]- [facility] Attending Physician: Rachel Hunt Admitting Physician: AdmRachel xavier Referring Physician: AdmtrRachel Allergies, Adverse Reactions, Alerts [...]
--- OUTSIDE RECORDS SUMMARY | 2022-11-22 02:36 | XMS_ITS | Continuity of Care Document ---
Author Name Unknown Organization [facility] Address [address] [place] [address]- Care Team Providers Care Automotive Service Professional Name Role Phone Oscar Tian MD Primary Care Physician En[place] [facility] [place] Date(s): 05/03/21 - 06/02/21 [facility] [address] [place] [address]- Attending Physician: Admtr, Ar8 Admitting Physician: Admtr, [...] 3 Refills, Maintenance, 03/29/21 11:14:00 EDT, Capsule, [facility] # 302, Partial fill upon patient [...] opioid drug. Start Date: 03/29/21 Status: Ordered indapamide 1.25 mg oral tablet 1 tablet = 1.25 mg, By Mouth, Daily in AM, # 90 tablet, 3 Refills, Maintenance, 04/12/21 9:59:00 EDT, Tablet, [facility] # 302, Partial fill upon patient [...] 11 Refills, Maintenance, 05/03/21 17:08:00 EDT, Tablet, [facility] # 302, Partial fill upon benjamin... [...]
--- OUTSIDE RECORDS SUMMARY | 2022-11-22 02:36 | XMS_ITS | Continuity of Care Document ---
Author Name Unknown Organization [facility] Address [address] [place] [address]- Care Team Providers Care Supplier Engineer Name Role Phone Cem TERRELL, Reynaldo Rebolledo Primary Care Physician Encounter [facility] Date(s): 07/13/20 - 07/20/20 [facility] [address] [place] [id number] Attending Physician: Kevin Rogers MD Allergies, Adverse Reactions, Alerts Substance Reaction [...]
--- OUTSIDE RECORDS SUMMARY | 2022-11-22 02:36 | XMS_ITS | Continuity of Care Document ---
Author Name Unknown Organization [facility] Address [address] [place] [address]- Care Team Providers Care Wrist Closer Name Role Phone Cem TERRELL, Reynaldo Rebolledo Primary Care Physician [phone] [place] [facility] Date[place]s): 03/14/20 - 03/21/20 [facility] [address] [place] [address]- [facility] Encounter Diagnosis Mild TBI(Discharge Diagnosis) - 03/15/20 Attending Physician: Kevin Rogers MD Allergies, Adverse [...] Diagnosis Diagnosis Type Effective Dates Health Status Clini hoang Service Informant Mild TBI Discharge Diagnosis 03/15/20 Vital Signs Most recent to oldest [Reference Range]: 1 Height 172.72 cm (03/14/20 3:26 PM) Weight 105.9 kg (03/14/20 3:26 PM) Oxygen Saturation [94-100 %] 95 % (03/14/20 3:26 PM) Pulse Rate [55-90 bpm] 63 bpm (03/14/20 3:26 PM) Body Mass Index [18.5-24.99] 35.5 *>HHI* (03/14/20 3:26 PM) Blood Pressure [90-138/55-84 mm Hg] 158/ 63mm Hg *H* (03/14/20 3:26 PM) Temperature [96.8-100.4 DegF] 97.8 DegF (03/14/20 3:26 PM) Blood pressure sites Arm, left (03/14/20 3:26 PM) Temperature Route Temporal (03/14/20 3:26 PM) Social History Social History Type Response Sex Male
--- OUTSIDE RECORDS SUMMARY | 2022-11-22 02:36 | XMS_ITS | Continuity of Care Document ---
Author Name Unknown Organization [facility] lt Address [address] [place] [address]- Care Team Providers Care Car Repairer Apprentice Name Role Phone Alem Payton Primary Care Physician Encounter [facility] [place] Date(s): 06/12/22 - 06/19/22 [facility] Adult [address] [place] [address]- Attending Physician: Durga Fonseca MD Allergies, Adverse Reactions, Alerts Substance Reaction [...] 3 Refills, Maintenance, 03/29/21 11:14:00 EDT, Capsule, [facility] # 302, Partial fill upon patient request if the prescription is for a schedule II opioid drug., 1 capsule By Mouth Daily, 169.6, cm, 03/14... Start Date: 03/29/21 Status: Ordered Centrum Silver By Mouth, Daily, 0 Refills, Maintenance, 09/23/18 17:25:39 EDT Start Date: 09/23/18 Status: Ordered fenofibrate 160 mg oral tablet 1 tablet, By Mouth, Daily, # 30 tablet, 5 Refills, [facility] #[id number], 169.6, cm, 11/28/21 14:37:00 EDT, Height Start Date: 02/28/22 Status: Ordered indapamide 1.25 mg oral tablet 1 tablet, By Mouth, Daily in AM, # 90 tablet, 0 Refills, Maintenance, 05/20/22 15:10:00 EST, [id number], 169.6, cm, 04/03/22 10:42:00 EDT, Height Start Date: 05/20/22 Status: Ordered levothyroxine 0.025 mg oral tablet See Instructions, 1 tablet By Mouth ON FRIDAY AND FRIDAY. TAKE WITH 200 MCG TABLETS FOR A TOTAL OF 225 MCG ON MONDAYS AND THURSDAYS., # 12 tablet, 11 Refills, Maintenance, 02/14/22 15:13:00 EDT, Tablet, [facility] # 302, Partial fill upon benjamin... Start Date: 02/14/22 Status: Ordered levothyroxine 200 mcg (0.2 mg) oral capsule 1 capsule = 200 mcg, By Mouth, Daily, # 90 capsule, 3 Refills, Maintenance, 02/14/22 17:26:00 EDT, Capsule, [facility] # 302, Partial fill upon patient request if the prescription is for a schedule II opioid drug., 169.6, cm, 11/28/21 14:37:00 ED... Start Date: 02/14/22 Status: Ordered Levoxyl 200 mcg, By Mouth, Daily, Maintenance, 06/21/11 12:28:38 Start Date: 06/21/11 Status: Ordered omeprazole 20 mg oral enteric coated capsule 1 capsule, By Mouth, Daily, # 90 capsule, 0 Refills, Maintenance, 05/20/22 15:10:00 EST, [facility] #[id number], 169.6, cm, 04/03/22 10:42:00 EDT, Height Start Date: 05/20/22 Status: Ordered sildenafil 25 mg oral tablet 1 tablet = 25 mg, By Mouth, Daily, 1 hour before sexual activity, # 10 tablet, 3 Refills, Maintenance, 04/09/22 16:33:00 EDT, Tablet, [facility] # 302, Partial fill upon patient [...] disc Confirmed Active Mild TBI Confirmed Active Vital Signs Most recent to oldest [Reference Range]: 1 Height 169.6 cm (06/12/22 2:18 PM) Social History Social History Type Response Smoking Status Cigars or pipes uriel y within last 30 days; Use: Cigars 2 a week Quit tobacco 15 years ago entered on: 03/29/21 Sex Male Patient Care team information Care Team Personnel Name: Ese Rodríguez RN Position: [facility] RN Member Role: Primary Care Nurse Name: Sharee Guillen Position: [facility] Outreach Member Role: Lifetime Consulting Physician Name: Mattie Gonzalez RN Position: [facility] Malcolm RN Member Role: Primary Care Nurse Name: Alem Payton Position: [facility] PCO Associate Professional Member Role: PCP Address: Address: [address] [place] [address] Care Team Related Persons Name: JACKLYN BAILEY Address: [place] [address] Name: JACKLYN WHITE Address: home [address] [place] [address]
--- OUTSIDE RECORDS SUMMARY | 2022-11-22 02:36 | XMS_ITS | Continuity of Care Document ---
Author Name Unknown Organization [facility] Address [address] [place] [address]- Care Team Providers Care Mix Crusher Operator Name Role Phone Oscar Tian MD Primary Care Physician En[place] [facility] [place] Date(s): 05/02/21 - 06/01/21 [facility] Adult [address] [place] [address]- Allergies, Adverse Reactions, Alerts Substance Reaction Severity [...] 3 Refills, Maintenance, 03/29/21 11:14:00 EDT, Capsule, [facility] # 302, Partial fill upon patient [...] 3 Refills, Maintenance, 04/12/21 9:59:00 EDT, Tablet, [facility] # 302, Partial fill upon patient [...] 11 Refills, Maintenance, 05/03/21 17:08:00 EDT, Tablet, [facility] # 302, Partial fill upon benjamin... [...]
--- OUTSIDE RECORDS SUMMARY | 2022-11-22 02:36 | XMS_ITS | Summary of Care ---
Author Name Unknown Organization [facility] Address [address] [place] [address]- Encounter [id number] Date(s): 11/09/19 - 11/02/[address] [address]- [facility] Attending Physician: KIM CHÁVEZ OD Referring Physician: CAPRI MICHAEL MD
--- OUTSIDE RECORDS SUMMARY | 2022-11-22 02:36 | XMS_ITS | Continuity of Care Document ---
Author Name Unknown Organization [facility] Address [address] [place] [address]- Care Team Providers Care Petrologist Name Role Phone Cem TERRELL, Reynaldo Rebolledo Primary Care Physician [phone] [place] [facility] [place] Date(s): 06/17/19 - 06/24/19 [facility] [address] [place] [address]- [facility] Attending Physician: Kevin Rogers MD Referring Physician: [...] oldest [Reference Range]: 1 Height 172.72 cm (06/17/19 3:44 PM) Weight 105.5 kg (06/17/19 3:44 PM) Oxygen Saturation [94-100 %] 94 % (06/17/19 3:44 PM) Pulse Rate [55-90 bpm] 58 bpm (06/17/19 3:44 PM) Body Mass Index [18.5-24.99] 35.36 *>HHI* (06/17/19 3:44 PM) Blood Pressure [90-138/55-84 mm Hg] 143/ 70mm Hg *H* (06/17/19 3:44 PM) Temperature [96.8-100.4 DegF] 97.4 DegF (06/17/19 3:44 PM) Blood pressure sites Arm, left (06/17/19 3:44 PM) Temperature Route Temporal (06/17/19 3:44 PM) Social History Social History Type Response Sex Male
--- OUTSIDE RECORDS SUMMARY | 2022-11-22 02:36 | XMS_ITS | Continuity of Care Document ---
Author Name Unknown Organization [facility] lt Address [address] [place] [address]- Care Team Providers Care Business Office Specialist Name Role Phone Alem Payton Primary Care Physician [phone] [place] [facility] [place] Date(s): 06/12/22 - 07/12/22 [facility] [address] [place] [address]- Allergies, Adverse Reactions, Alerts Substance Reaction Severity [...] 3 Refills, Maintenance, 03/29/21 11:14:00 EDT, Capsule, [facility] # 302, Partial fill upon patient request if the prescription is for a schedule II opioid drug., 1 capsule By Mouth Daily, 169.6, cm, 03/14... Start Date: 03/29/21 Status: Ordered Centrum Silver By Mouth, Daily, 0 Refills, Maintenance, 09/23/18 17:25:39 EDT Start Date: 09/23/18 Status: Ordered fenofibrate 160 mg oral tablet 1 tablet, By Mouth, Daily, # 30 tablet, 5 Refills, [facility] #[id number], 169.6, cm, 11/28/21 14:37:00 EDT, Height Start Date: 02/28/22 Status: Ordered indapamide 1.25 mg oral tablet 1 tablet, By Mouth, Daily in AM, # 90 tablet, 0 Refills, Maintenance, 05/20/22 15:10:00 EST [id number], 169.6, cm, 04/03/22 10:42:00 EDT, Height Start Date: 05/20/22 Status: Ordered levothyroxine 0.025 mg oral tablet See Instructions, 1 tablet By Mouth ON FRIDAY AND FRIDAY. TAKE WITH 200 MCG TABLETS FOR A TOTAL OF 225 MCG ON MONDAYS AND THURSDAYS., # 12 tablet, 11 Refills, Maintenance, 02/14/22 15:13:00 EDT, Tablet, [facility] # 302, Partial fill upon benjamin... Start Date: 02/14/22 Status: Ordered levothyroxine 200 mcg (0.2 mg) oral capsule 1 capsule = 200 mcg, By Mouth, Daily, # 90 capsule, 3 Refills, Maintenance, 02/14/22 17:26:00 EDT, Capsule, [facility] # 302, Partial fill upon patient request if the prescription is for a schedule II opioid drug., 169.6, cm, 11/28/21 14:37:00 ED... Start Date: 02/14/22 Status: Ordered Levoxyl 200 mcg, By Mouth, Daily, Maintenance, 06/21/11 12:28:38 Start Date: 06/21/11 Status: Ordered omeprazole 20 mg oral enteric coated capsule 1 capsule, By Mouth, Daily, # 90 capsule, 0 Refills, Maintenance, 05/20/22 15:10:00 EST, [facility] #[id number], 169.6, cm, 04/03/22 10:42:00 EDT, Height Start Date: 05/20/22 Status: Ordered sildenafil 25 mg oral tablet 1 tablet = 25 mg, By Mouth, Daily, 1 hour before sexual activity, # 10 tablet, 3 Refills, Maintenance, 04/09/22 16:33:00 EDT, Tablet, [facility] # 302, Partial fill upon patient [...] Team Personnel Name: Ese Rodríguez RN Position: [facility] RN Member Role: Primary Care Nurse Name: Sharee Guillen Position: [facility] Outreach Member Role: Lifetime Consulting Physician Name: Mattie Gonzalez RN Position: [facility] Malcolm RN Member Role: Primary Care Nurse Name: Alem Payton Position: [facility] PCO Associate Professional Member Role: PCP Address: Address: [address] [place] [address] Care Team Related Persons Name: JACKLYN BAILEY Address: [place] [address] Name: JACKLYN WHITE Address: home [address] [place] [address]
--- OUTSIDE RECORDS SUMMARY | 2022-11-22 02:36 | XMS_ITS | Continuity of Care Document ---
Author Name Unknown Organization [facility] lt Address [address] [place] [address]- Care Team Providers Care Musical Therapist Name Role Phone Alem Payton Primary Care Physician [phone] [place] [facility] [place](s): 04/06/22 - 05/06/22 [facility] Adult [address] [place] [address]- Allergies, Adverse Reactions, Alerts Substance Reaction Severity [...] 3 Refills, Maintenance, 03/29/21 11:14:00 EDT, Capsule, [facility] # 302, Partial fill upon patient request if the prescription is for a schedule II opioid drug., 1 capsule By Mouth Daily, 169.6, cm, 03/14... Start Date: 03/29/21 Status: Ordered Centrum Silver By Mouth, Daily, 0 Refills, Maintenance, 09/23/18 17:25:39 EDT Start Date: 09/23/18 Status: Ordered fenofibrate 160 mg oral tablet 1 tablet, By Mouth, Daily, # 30 tablet, 5 Refills, [facility] #[id number], 169.6, cm, 11/28/21 14:37:00 EDT, Height Start Date: 02/28/22 Status: Ordered indapamide 1.25 mg oral tablet 1 tablet = 1.25 mg, By Mouth, Daily in AM, # 90 tablet, 3 Refills, Maintenance, 04/12/21 9:59:00 EDT, Tablet, [facility] # 302, Partial fill upon patient [...] 11 Refills, Maintenance, 02/14/22 15:13:00 EDT, Tablet, [facility] # 302, Partial fill upon benjamin... Start Date: 02/14/22 Status: Ordered levothyroxine 200 mcg (0.2 mg) oral capsule 1 capsule = 200 mcg, By Mouth, Daily, # 90 capsule, 3 Refills, Maintenance, 02/14/22 17:26:00 EDT, Capsule, [facility] # 302, Partial fill upon patient request if the prescription is for a schedule II opioid drug., 169.6, cm, 11/28/21 14:37:00 ED... Start Date: 02/14/22 Status: Ordered Levoxyl 200 mcg, By Mouth, Daily, Maintenance, 06/21/11 12:28:38 Start Date: 06/21/11 Status: Ordered omeprazole 20 mg oral enteric coated capsule 1 capsule, By Mouth, Daily, # 90 capsule, 0 Refills, [facility] #[id number], 169.6, cm, 11/28/21 14:37:00 EDT, Height Start Date: 02/07/22 Status: Ordered sildenafil 25 mg oral tablet 1 tablet = 25 mg, By Mouth, Daily, 1 hour before sexual activity, # 10 tablet, 3 Refills, Maintenance, 04/09/22 16:33:00 EDT, Tablet, [facility] # 302, Partial fill upon patient [...] information Personnel Name: Alem Payton Address: Address: [address] [place] [address]
--- OUTSIDE RECORDS SUMMARY | 2022-11-22 02:36 | XMS_ITS | Continuity of Care Document ---
Author Name Unknown Organization [facility] Address [address] [place] [address]- Care Team Providers Care Research Biostatistician Name Role Phone Cem TERRELL, Reynaldo Rebolledo Primary Care Physician Encounter [facility] [place] Date(s): 07/22/19 - 07/29/19 [facility] [address] [place] [address]- [facility] Attending Physician: Kevin Rogers MD Referring Physician: [...] oldest [Reference Range]: 1 Height 172.72 cm (07/22/19 4:03 PM) Oxygen Saturation [94-100 %] 94 % (07/22/19 4:03 PM) Pulse Rate [55-90 bpm] 59 bpm (07/22/19 4:03 PM) Blood Pressure [90-138/55-84 mm Hg] 149/ 66mm Hg *H* (07/22/19 4:03 PM) Temperature [96.8-100.4 DegF] 98.4 DegF (07/22/19 4:03 PM) Blood pressure sites Arm, left (07/22/19 4:03 PM) Temperature Route Temporal (07/22/19 4:03 PM) Social History Social History Type Response Sex Male
--- OUTSIDE RECORDS SUMMARY | 2022-11-22 02:36 | XMS_ITS | Continuity of Care Document ---
Author Name Unknown Organization [facility] lt Address [address] [place] [address]- Care Team Providers Care Director Report Name Role Phone Alem Payton Primary Care Physician [place] [facility] [place]07[place]21 - 12/07/21 [facility] Adult [address] [place] [address]- Allergies, Adverse Reactions, Alerts Substance Reaction Severity [...] 3 Refills, Maintenance, 03/29/21 11:14:00 EDT, Capsule, [email or web address] # 302, Partial fill upon patient [...] 3 Refills, Maintenance, 11/07/21 16:35:00 EDT, Tablet, [email or web address] # 302, Partial fill upon patient request if the prescription is for a schedule II opioid drug., 169.6, cm, 03/29/21 11:33:00 EDT, H... Start Date: 11/07/21 Status: Ordered indapamide 1.25 mg oral tablet 1 tablet = 1.25 mg, By Mouth, Daily in AM, # 90 tablet, 3 Refills, Maintenance, 04/12/21 9:59:00 EDT, Tablet, [email or web address] # 302, Partial fill upon patient [...] 11 Refills, Maintenance, 05/03/21 17:08:00 EDT, Tablet, [email or web address] # 302, Partial fill upon benjamin... [...]
--- OUTSIDE RECORDS SUMMARY | 2022-11-22 02:36 | XMS_ITS | Continuity of Care Document ---
Author Name Unknown Organization [facility] Address [address] [place] [address]- Care Team Providers Care Clinical Pharmacologist Name Role Phone Cem TERRELL, Reynaldo Rebolledo Primary Care Physician [place] [facility] [place](s): 11/20/20 - 12/20/20 [facility] Physical [facility] Rehabilitation [address] [place] [address] Allergies, Adverse Reactions, Alerts Substance Reaction Severity [...]
--- OUTSIDE RECORDS SUMMARY | 2022-11-22 02:36 | XMS_ITS | Continuity of Care Document ---
Author Name Unknown Organization [facility] ter Address [address] [place] [address]- Care Team Providers Care Ssis Architect Name Role Phone Cem TERRELL, Reynaldo Rebolledo Primary Care Physician Encounter [facility] [place] Date(s): 09/28/20 - 09/29/[address] [address] Attending Physician: Reynaldo Priest MD Allergies, [...]
--- OUTSIDE RECORDS SUMMARY | 2022-11-22 02:36 | XMS_ITS | Continuity of Care Document ---
Author Name Unknown Organization [facility] lt Address [address] [place] [address]- Care Team Providers Care Freight Router Name Role Phone Alem Payton Primary Care Physician Encounter [facility] [place] Date(s): 04/03/22 - 04/10/22 [facility] Adult [address] [place] [address]- Encounter Diagnosis Wellness examination(Discharge Diagnosis) - 04/03/22 Hypertension(Discharge Diagnosis) - 04/03/22 Hypothyroidism(Discharge Diagnosis) - 04/03/22 Hypertriglyceridemia(Discharge Diagnosis) - 04/03/22 Chronic GERD(Discharge Diagnosis) - 04/03/22 Prediabetes(Discharge Diagnosis) - 04/03/22 Rash of back(Discharge Diagnosis) - 04/03/22 Alcohol use(Discharge Diagnosis) - 04/03/22 Attending Physician: Alem Payton Allergies, Adverse Reactions, Alerts [...] 3 Refills, Maintenance, 03/29/21 11:14:00 EDT, Capsule, [facility], Partial fill upon patient request if the prescription is for a schedule II opioid drug., 1 capsule By Mouth Daily, 169.6, cm, 03/14... Start Date: 03/29/21 Status: Ordered Centrum Silver By Mouth, Daily, 0 Refills, Maintenance, 09/23/18 17:25:39 EDT Start Date: 09/23/18 Status: Ordered fenofibrate 160 mg oral tablet 1 tablet, By Mouth, Daily, # 30 tablet, 5 Refills, [facility] #[id number], 169.6, cm, 11/28/21 14:37:00 EDT, Height Start Date: 02/28/22 Status: Ordered indapamide 1.25 mg oral tablet 1 tablet = 1.25 mg, By Mouth, Daily in AM, # 90 tablet, 3 Refills, Maintenance, 04/12/21 9:59:00 EDT, Tablet, [facility], Partial fill upon patient [...] 11 Refills, Maintenance, 02/14/22 15:13:00 EDT, Tablet, [facility], Partial fill upon benjamin... Start Date: 02/14/22 Status: Ordered levothyroxine 200 mcg (0.2 mg) oral capsule 1 capsule = 200 mcg, By Mouth, Daily, # 90 capsule, 3 Refills, Maintenance, 02/14/22 17:26:00 EDT, Capsule, [facility], Partial fill upon patient request if the prescription is for a schedule II opioid drug., 169.6, cm, 11/28/21 14:37:00 ED... Start Date: 02/14/22 Status: Ordered Levoxyl 200 mcg, By Mouth, Daily, Maintenance, 06/21/11 12:28:38 Start Date: 06/21/11 Status: Ordered omeprazole 20 mg oral enteric coated capsule 1 capsule, By Mouth, Daily, # 90 capsule, 0 Refills, [facility] #[id number], 169.6, cm, 11/28/21 14:37:00 EDT, Height Start Date: 02/07/22 Status: Ordered sildenafil 25 mg oral tablet 1 tablet = 25 mg, By Mouth, Daily, 1 hour before sexual activity, # 10 tablet, 3 Refills, Maintenance, 04/09/22 16:33:00 EDT, Tablet, [facility], Partial fill upon patient request if the prescription is for a schedule II opioid drug., 169.6... Start Date: 04/09/22 Status: Ordered triamcinolone 0.025% topical cream 1 application, Topically, 2 times a day, for 14 days, # 15 Gm, 0 Refills, Acute 04/17/22 11:16:00 EDT, 04/03/22 11:16:00 EDT, Cream, [facility], Partial fill upon patient request if the prescription is for a schedule II opioid drug., 1 appl... Start Date: 04/03/22 Stop Date: 04/17/22 Status: Ordered Vitamin C By Mouth, Daily, [...] disc Confirmed Active Mild TBI Confirmed Active Diagnosis Diagnosis Type Effective Dates Health Status Clinical Service Informant Wellness examination Discharge Diagnosis 04/03/22 Hypertension Discharge Diagnosis 04/03/22 Hypothyroidism Discharge Diagnosis 04/03/22 Chronic GERD Discharge Diagnosis 04/03/22 Hypertriglyceridemia Discharge Diagnosis 04/03/22 Prediabetes Discharge Diagnosis 04/03/22 Rash of back Discharge Diagnosis 9/21/22 Alcohol use Discharge Diagnosis 04/03/22 Vital Signs Most recent to oldest [Reference Range]: 1 Height 169.6 cm (04/03/22 10:42 AM) Weight 104 kg (04/03/22 10:42 AM) Oxygen Saturation [94-100 %] 97 % (04/03/22 10:42 AM) Pulse Rate [55-90 bpm] 64 bpm (04/03/22 10:42 AM) Body Mass Index [18.5-24.99 kg/m2] 36.16 kg/m2 *>HHI* (04/03/22 10:42 AM) Blood Pressure [90-138/55-84 mm Hg] 136/ 72mm Hg (04/03/22 10:42 AM) Mode of Delivery (Oxygen) Room air (04/03/22 10:42 AM) Blood pressure sites Arm, left (04/03/22 10:42 AM) Weight Obtained Via Standing scale (04/03/22 10:42 AM) Social History Social History Type Response Smoking Status Cigars or pipes uriel y within last 30 days; Use: Cigars 2 a week Quit tobacco 15 years ago entered on: 03/29/21 Sex Male Patient Care team information Personnel Name: Alem Payton Address: Address: [address] [place] [id number]
--- OUTSIDE RECORDS SUMMARY | 2022-11-22 02:36 | XMS_ITS | Continuity of Care Document ---
Author Name Unknown Organization [facility] Address [address] [place] [address]- Care Team Providers Care Tooth Cutter Spur Name Role Phone Cem TERRELL, Reynaldo Rebolledo Primary Care Physician [phone] Encounter [facility] [place] [id number] Date(s): 07/22/19 - 08/01/19 [facility] [address] [place] [address]- [facility] Attending Physician: Rachel Hunt Admitting Physician: AdmRachel xavier Referring Physician: Admtr, Ar8 Allergies, Adverse Reactions, [...]
--- OUTSIDE RECORDS SUMMARY | 2022-11-22 02:36 | XMS_ITS | Continuity of Care Document ---
Author Name Unknown Organization [facility] lt Address [address] [place] [address]- Care Team Providers Care Zinc Miner Blasting Name Role Phone Alem Payton Primary Care Physician [place] [facility] [place] Date(s): 10/18/22 - 11/17/22 [facility] Adult [address] [place] [address]- Allergies, Adverse Reactions, Alerts Substance Reaction Severity [...] 3 Refills, Maintenance, 07/24/22 8:47:00 EST, Capsule, [facility] # [facility], Partial fill upon patient request if the prescription is for a schedule II opioid drug., 1 capsule By Mouth Daily, 169.6, cm, 06/12... Start Date: 07/24/22 Status: Ordered Centrum Silver By Mouth, Daily, 0 Refills, Maintenance, 09/23/18 17:25:39 EDT Start Date: 09/23/18 Status: Ordered fenofibrate 160 mg oral tablet 1 tablet, By Mouth, Daily, # 30 tablet, 5 Refills, 10/23/22 16:26:00 EDT, [facility] # 302, 169.6, cm, 07/31/22 13:56:00 EST, Height Start Date: 10/23/22 Status: Ordered indapamide 1.25 mg oral tablet [...] 11 Refills, Maintenance, 02/14/22 15:13:00 EDT, Tablet, [facility] # 302, Partial fill upon benjamin... Start Date: 02/14/22 Status: Ordered levothyroxine 200 mcg (0.2 mg) oral capsule 1 capsule = 200 mcg, By Mouth, Daily, # 90 capsule, 3 Refills, Maintenance, 02/14/22 17:26:00 EDT, Capsule, [facility] # 302, Partial fill upon patient request if the prescription is for a schedule II opioid drug., 169.6, cm, 11/28/21 14:37:00 ED... Start Date: 02/14/22 Status: Ordered Levoxyl 200 mcg, By Mouth, Daily, Maintenance, 06/21/11 12:28:38 Start Date: 06/21/11 Status: Ordered omeprazole 20 mg oral enteric coated capsule 1 capsule, By Mouth, Daily, # 90 capsule, 0 Refills, Maintenance, 11/11/22 7:40:00 EDT, [facility] #[id number], 169.6, cm, 07/31/22 13:56:00 EST, Height Start Date: 11/11/22 Status: Ordered sildenafil 25 mg oral tablet 1 tablet = 25 mg, By Mouth, Daily, 1 hour before sexual activity, # 10 tablet, 3 Refills, Maintenance, 04/09/22 16:33:00 EDT, Tablet, [facility] # 302, Partial fill upon patient [...] Team Personnel Name: Ese Rodríguez RN Position: [facility] RN Member Role: Primary Care Nurse Name: Sharee Guillen Position: [facility] Outreach Member Role: Lifetime Consulting Physician Name: Mattie Gonzalez RN Position: [facility] Malcolm RN Member Role: Primary Care Nurse Name: Alem Payton Position: [facility] PCO Associate Professional Member Role: PCP Address: Address: [address] [place] [address] Care Team Related Persons Name: JACKLYN BAILEY Address: [place] [address] Name: JACKLYN WHITE Address: home [address] [place] [address]
--- OUTSIDE RECORDS SUMMARY | 2022-11-22 02:36 | XMS_ITS | Continuity of Care Document ---
Author Name Unknown Organization [facility] Address [address] [place] [address]- Care Team Providers Care Celery Tier Name Role Phone Jaylan TERRELL, Oscar Bain Primary Care Physician Encounter [facility] Date(s): 04/12/21 - 04/19/21 [facility] Adult [address] [place] [address]- Attending Physician: Not on Staff, Attending MD Allergies, Adverse Reactions, Alerts Substance Reaction [...] 3 Refills, Maintenance, 03/29/21 11:14:00 EDT, Capsule, [facility] # [facility], Partial fill upon patient [...] 3 Refills, Maintenance, 04/12/21 9:59:00 EDT, Tablet, [facility] # [facility], Partial fill upon patient request if the prescription is for a schedule II opioid drug., 169.6, cm, 03/29/21 11:33:00... Start Date: 04/12/21 Status: Ordered Levoxyl 200 mcg, By Mouth, [...] to oldest [Reference Range]: 1 2 3 Blood Pressure [90-138/55-84 mm Hg] 177/80mm Hg *H* (04/12/21 10:25 AM) 152/79mm Hg *H* (04/12/21 10:25 AM) 183/80mm Hg *H* (04/12/21 10:24 AM) Blood pressure sites Arm, left (04/12/21 10:25 AM) Arm, left (04/12/21 10:25 AM) Arm, left (04/12/21 10:24 AM) Social History Social History Type Response Smoking Status Cigars or pipes uriel y within last 30 days; Use: Cigars 2 a week Quit tobacco 15 years ago entered on: 03/29/21 Sex Male
--- OUTSIDE RECORDS SUMMARY | 2022-11-22 02:36 | XMS_ITS | Continuity of Care Document ---
Author Name Unknown Organization [facility] Address [address] [place] [address]- Care Team Providers Care Manufacturing Technology Professor Name Role Phone Oscar Tian MD Primary Care Physician Encounter [facility] [place] Date(s): 05/03/21 - 05/10/21 [facility] Adult [address] [place] [address]- Attending Physician: Oscar Tian MD Allergies, Adverse [...] 3 Refills, Maintenance, 03/29/21 11:14:00 EDT, Capsule, [facility] # [facility], Partial fill upon patient [...] 3 Refills, Maintenance, 04/12/21 9:59:00 EDT, Tablet, [facility] # 302, Partial fill upon patient [...] 11 Refills, Maintenance, 05/03/21 17:08:00 EDT, Tablet, [facility] # 302, Partial fill upon benjamin... [...] recent to oldest [Reference Range]: 1 2 Blood Pressure [90-138/55-84 mm Hg] 126/ 58mm Hg (05/03/21 9:36 AM) 144/62mm Hg *H* (05/03/21 9:28 AM) Blood pressure sites Arm, right (05/03/21 9:36 AM) Arm, right (05/03/21 9:28 AM) Social History Social History Type Response Smoking Status Cigars or pipes uriel y within last 30 days; Use: Cigars 2 a week Quit tobacco 15 years ago entered on: 03/29/21 Sex Male
--- OUTSIDE RECORDS SUMMARY | 2022-11-22 02:36 | XMS_ITS | Continuity of Care Document ---
Author Name Unknown Organization [facility] Address [address] [place] [address]- Care Team Providers Care Certified Rehabilitation Counselor Name Role Phone Cem TERRELL, Reynaldo Rebolledo Primary Care Physician [phone] Encounter [facility] [place] Date(s): 03/14/20 - 04/13/20 [facility] [address] [place] [address]- [facility] Attending Physician: Rachel Hunt Admitting Physician: AdmRachel xavier Referring Physician: Admtr ArBobby Allergies, Adverse Reactions, Alerts Substance Reaction Severity [...]
--- OUTSIDE RECORDS SUMMARY | 2022-11-22 02:36 | XMS_ITS | Continuity of Care Document ---
Author Name Unknown Organization [facility] Address [address] [place] [address]- Care Team Providers Care Eyelet Punch Operator Name Role Phone Cem TERRELL, Reynaldo Rebolledo Primary Care Physician [place] [facility] [place]03[place] - 03/04/[address] [address] [facility] Attending Physician: Reynaldo Priest MD Allergies, [...]
--- OUTSIDE RECORDS SUMMARY | 2022-11-22 02:36 | XMS_ITS | Continuity of Care Document ---
Author Name Unknown Organization [facility] ter Address [address] [place] [address]- Care Team Providers Care Hunting Sales Associate Name Role Phone Cem TERRELL, Reynaldo Rebolledo Primary Care Physician [place] [facility] [place] 08/12/19 - 08/13/[address] [address]- [facility] Attending Physician: Reynaldo Priest MD Allergies, Adverse [...]
--- OUTSIDE RECORDS SUMMARY | 2022-11-22 02:36 | XMS_ITS | Continuity of Care Document ---
Author Name Unknown Organization [facility] Address [address] [place] [address]- Care Team Providers Care Casting Machine Service Operator Name Role Phone Cem TERRELL, Reynaldo Rebolledo Primary Care Physician Encounter [facility] Date(s): 07/13/20 - 08/12/20 [facility] [address] [place] [address] Attending Physician: Rachel Hunt Admitting Physician: AdmRachel [...]
--- NOTE | 2022-11-22 02:45 | ED_ITS ---
HPI - General Adult General Chief complaint: Back Pain/Injury Stated complaint: Abd pain/and severe Lft side back pain/kidneystone Time Seen by Provider: 11/22/22 02:40 Source: patient Mode of arrival: ambulatory Limitations: no limitations History of Present Illness HPI narrative: Patient comes to the emergency room complaining of left back pain/left flank pain for 14 hours. Patient states that the pain is intermittent, but every time that the pain returns it is much worse than the previous time. Patient com plaining of nausea vomiting, no diarrhea, no fever or chills. Denies hematuria or dysuria. Related Data Previous Rx's Medication Instructions Recorded ketorolac 10 mg tablet 10 mg PO TID PRN pain #10 tabs 11/22/22 ondansetron HCl 4 mg tablet 4 mg PO Q6H PRN nausea and 11/22/22 vomiting #14 tabs tamsulosin 0.4 mg capsule (Flomax) 0.4 mg PO BEDTIME #20 caps 11/22/22 Allergies Allergy/AdvReac Type Severity Reaction Status Date / Time No Known Allergies Allergy Unverified 03/30/20 19:17 [No Known Allergies*] Review of Systems Review of Systems: Constitutional : No Weight loss, No Fever, No Chills, No Night Sweats, No Fatigue, No Malaise ENT/Mouth : No Hearing loss, No Ear Pain, No Nasal Congestion, No Sinus Pain, No Hoarseness, No sore throat, No Rhinorrhea, No Swallowing Difficulty Eyes: No Eye Pain, No Swelling, No Redness, No Foreign Body, No Discharge, No Vision Changes Cardiovascular : No Chest Pain, No SOB, No Dyspnea on Exertion, No Orthopnea, No Edema, No Palpitations Respiratory : No Cough, No Sputum, No Wheezing, No Smoke Exposure, No Dyspnea Gastrointestinal : No Nausea, No Vomiting, No Diarrhea, No Constipation, No abdominal Pain, No Hematochezia, No Melena Genitourinary : no irregular bleeding, No Dysuria, No Urinary Frequency, No Hematuria, No Urinary Incontinence, No Urgency, complaining of left-sided Flank Pain, No Urinary Flow Changes, No Hesitancy Musculoskeletal : No joint pain, No Myalgias, No Joint Swelling Skin : No Skin Lesions, No rash Neuro : No Weakness, No Numbness, No Paresthesias, No Loss of Consciousness, No Dizziness, No Headache Psych : No Anxiety/Panic, No Depression, No SI/HI/AH/VH, No Social Issues, Heme/Lymph: No Bruising, No Bleeding,No Lymphadenopathy Endocrine : No Polyuria, No Polydipsia, No Temperature Intolerance [facility] Past Medical History Medical History (Updated 11/22/22 @ 05:14 by Josephine Gordon MD) Hypertension Social History Social History Alcohol intake: current Alcohol intake frequency: holidays/special occasions only Smoked in Last 30 Days: No Use of substances other than those prescribed or required for medical reasons: No Advance Directives: No Advance Directives Information Provided: Yes Physical Exam ED Vital Signs: Vital Signs - 24 hr 11/22/22 01:21 11/22/22 02:54 Temperature 98.3 F Pulse Rate 64 64 Respiratory Rate 18 18 Blood Pressure 179/80 H Pulse Oximetry 95 96 Oxygen Delivery Method Room Air Room Air BMI result Body Mass Index 27.8 Const Other: Appearance: Alert. Oriented X3. Looks uncomfortable, unable to find a comf ortable position Eyes: Pupils equal, round and reactive to light. ENT: Pharynx normal. Neck: Normal inspection. Neck supple. No lymph nodes noted. No crepitus CVS: Normal heart rate and rhythm. Pulses normal. Normal S1 and S2 Respiratory: No respiratory distress. Breath sounds normal. No Wheezing. No rales Abdomen: Soft and nontender. No rigidity. No distention. Positive CVA tenderness Skin: Skin warm and dry. Normal skin color. Normal skin turgor. Extremities: No lower extremity edema. No Lacerations. No Rash Neuro: Oriented X 3. No motor deficit. No sensory deficit. Moving all e xtremities. No slurred speech. CN 2 through 12 grossly intact Psych: calm, cooperative, normal affect Course Course Course Narrative: -for likely patient is passing a kidney stone. -patient given IV fluids and Toradol. -CT scan pending Medications Administered Discontinued Medications Generic Name Dose Route Start Last Admin Trade Name Freq PRN Reason Stop Dose Admin Sodium Chloride 1,000 mls @ 999 mls/hr 11/22/22 03:43 11/22/22 04:53 Ns IVCONT 11/22/22 04:43 Infused .Q1H1M ONE Infusion Ketorolac Tromethamine 30 mg 11/22/22 02:44 11/22/22 02:50 Ketorolac Tromethamine 30 Mg/Ml Vial IVPUSH 11/22/22 02:45 30 mg ONCE ONE Administration Ondansetron HCl 4 mg 11/22/22 02:44 11/22/22 02:50 Ondansetron Hcl 4 Mg/2 Ml Vial IVPUSH 11/22/22 02:45 4 mg ONCE ONE Administration Medical Decision Making Medical Decision Making [facility] Narrative: -my interpretation of CT scan of abdomen pelvis, there is a stone in the left UPJ -urinalysis negative for UTI -patient had good pain relief with Toradol Differential Diagnosis Differential Diagnoses: The differential diagnosis associated with the presentation includes (Renal colic, ureterolithiasis, diverticulitis) Lab Data [facility] Lab Attestation statement: I reviewed the patient's lab results. 11/22/22 02:27 11/22/22 02:27 Labs: Lab Results 11/22/22 11/22/22 11/22/22 Range/Units 02:27 02:27 04:57 WBC 10.9 H (4.8-10.8) X10*3/uL RBC 4.86 (4.60-5.80) X10*6/uL Hgb 16.2 (14.0-18.0) g/dl Hct 44.8 (42.0-52.0) % MCV 92.2 (80.0-98.0) fL MCH 33.3 H (27.0-33.0) pg MCHC 36.2 H (31.0-36.0) g/dl RDW 11.7 (11.0-16.0) % Plt Count 211 (160-400) X10*3/uL MPV 10.1 (9.4-12.4) fL Immature Gran % (Auto) 0.6 H (0.0-0.4) % Neut % (Auto) 69.5 (45-73) % Lymph % (Auto) 18.2 L (20-40) % [place] % (Auto) 9.6 (2-11) % Eos % (Auto) 1.7 (0-4) % Baso % (Auto) 0.4 (0-2) % Lymph # (Auto) 2.0 (1.2-4.9) X10*3/uL [place] # (Auto) 1.1 (0.1-1.2) X10*3/uL Eos # (Auto) 0.2 (0.0-0.4) X10*3/uL Baso # (Auto) 0.0 (0.0-0.2) X10*3/uL Abs Immat Gran (auto) 0.06 H (0.00-0.03) X10*3/uL Absolute Neuts (auto) 7.6 (2.0-8.3) x10*3/uL Absolute Nucleated RBC 0.000 (0.0-0.012) X10*3/uL Nucleated RBC % (auto) 0.0 (0.0-0.2) /100WBC Sodium 142 (135-145) mmol/L Potassium 3.8 (3.3-5.1) mmol/L Chloride 104 (96-108) mmol/L Carbon Dioxide 28 (22-29) mmol/L Anion Gap 14 (12-20) BUN 23 H (9-16) mg/dL Creatinine 1.35 (0.5-1.4) mg/dL Estim Creat Clear Calc 53.2 Estimated GFR 53 Random Glucose 170 H (60-115) mg/dL Calcium 9.5 (8.4-10.2) mg/dL Total Bilirubin 0.6 (0.0-1.0) mg/dL Direct Bilirubin 0.3 (0.0-0.5) mg/dL AST 29 (5-37) U/L ALT 44 H (0-40) U/L Alkaline Phosphatase 37 L (39-117) U/L Total Protein 7.5 (6.5-8.0) g/dL Albumin 4.5 (3.5-5.0) g/dL Lipase 75 (8-78) U/L Urine Color Yellow Urine Appearance Clear Urine pH 5.5 (5.0-9.0) Ur Specific Queen 1.020 (1.005-1.025) Urine Protein Negative (Neg-Trace) mg/dL Urine Glucose (UA) Negative (Negative) mg/dL Urine Ketones Negative (Negative) mg/dL Urine Blood Moderate (2+) H (Negative) Urine Nitrite Negative (Negative) Ur Leukocyte Esterase Negative (Negative) Radiology Impression Discussion of test interpretation with radiology: I have reviewed the radiologist's reading. Radiologist Impression: FINDINGS: LUNG BASES: The visualized lung bases are unremarkable.? LIVER, GALLBLADDER, AND BILIARY TREE: The liver demonstrates hypoattenuation consistent with steatosis. No focal hepatic lesion or biliary ductal dilatation is identified. The gallbladder is unremarkable. PANCREAS: Unremarkable.? SPLEEN: Unremarkable.? ADRENAL GLANDS: Unremarkable.? KIDNEYS AND URETERS: There is a 3 mm calculus at the left ureterovesicular junction with minimal hydronephrosis and associated perinephric stranding. No right hydronephrosis. Few bilateral renal cysts are noted; no follow-up recommended. BLADDER: Mildly distended and grossly unremarkable.? GASTROINTESTINAL TRACT: No evidence of bowel obstruction or significant wall thickening. No free fluid or free air is seen. ABDOMINAL WALL: No significant hernia is appreciated.? LYMPH NODES: Normal. VASCULAR: Moderate atherosclerotic calcifications. PELVIC VISCERA: Unremarkable.? OSSEOUS STRUCTURES: Multilevel degenerative endplate changes in the spine.? CT/CT abdomen pelvis wo IV con IMPRESSION: 1.? Left ureterovesicular junction calculus measuring 3 mm with minimal hydronephrosis. 2.? Hepatic steatosis Discharge Plan Discharge Clinical Impression: Ureterolithiasis Patient Disposition: Home, Self-Care Instructions: Kidney Stones (ED) Additional Instructions: Please follow-up with your primary care physician tomorrow. Also, please call Urology to schedule an appointment. If you have any worsening or new symptoms, please return to the emergency room or call 911 Prescriptions: New tamsulosin [Flomax] 0.4 mg capsule 0.4 mg PO BEDTIME Qty: 20 0RF ketorolac 10 mg tablet 10 mg PO TID PRN (Reason: pain) Qty: 10 0RF ondansetron HCl 4 mg tablet 4 mg PO Q6H PRN (Reason: nausea and vomiting) Qty: 14 0RF Referrals: Marcell Nicole MD [Physician] - 11/25/22
[2022-11-22] MEDS: Ketorolac Tromethamine 30 MG/ML VIAL IVPUSH (02:50)
[2022-11-22] MEDS: ondansetron HCL 4 MG/2 ML VIAL IVPUSH (02:50)
[2022-11-22 02:51] LABS: Alanine Aminotransferase 44 U/L (0-40); Albumin Level 4.5 g/dL (3.5-5.0); Alkaline Phosphatase 37 U/L (39-117); Anion Gap 14 (12-20); Aspartate Amino Transferase 29 U/L (5-37); Bilirubin Direct 0.3 mg/dL (0.0-0.5); Bilirubin Total 0.6 mg/dL (0.0-1.0); Blood Urea Nitrogen 23 mg/dL (9-16); Calcium 9.5 mg/dL (8.4-10.2); Carbon Dioxide 28 mmol/L (22-29); Chloride 104 mmol/L (96-108); Creatinine Clr Calc Pharmacy 53.2; Estimated Glomerular Filt Rate 53; Glucose Random 170 mg/dL (60-115); Lipase 75 U/L (8-78); Potassium 3.8 mmol/L (3.3-5.1); Sodium 142 mmol/L (135-145); Total Protein 7.5 g/dL (6.5-8.0)
[2022-11-22 02:54] VITALS: PULSE 64; RESP 18; O2SAT 96
--- NOTE | 2022-11-22 03:20 | PC.NURSE ---
pt went to CT and is now back in room resting on stretcher. Pt reports pain is much better, 2/10 and reports having no nausea at this time
[2022-11-22] MEDS: 0.9 % Sodium Chloride 1,000 ML 999 ML IVCONT (03:48)
--- NOTE | 2022-11-22 03:49 | PC.NURSE ---
assumed care of pt aox4 no apparent distress 1L NS IV running at this time pt resting quietly
[2022-11-22 05:08] LABS: Appearance Urine Clear; Color Urine Yellow; Glucose Urine UA Negative (Negative); Leukocyte Esterase Urine Negative (Negative); Nitrite Urine Negative (Negative); PH 5.5 (5.0-9.0); UMIC TRIGGER UACC YES; Urine Blood Moderate (2+) (Negative); Urine Ketones Negative (Negative); Urine Protein Negative (Neg-Trace)
[2022-11-22 05:10] LABS: Bacteria Urine None Seen (None Seen); Hyaline Casts Urine 0-2 /LPF (0-2); Squamous Epithelial Cell Urine 0-2 /HPF (0-2); WBC Urine 0-5 /HPF (0-5)
--- NOTE | 2022-11-22 05:20 | PC.NURSE ---
pt resting quietly, no apparent distress
[2022-11-22 05:27] VITALS: RESP 21
[2022-11-22] MEDS: Morphine Sulfate 2 MG/ML CARTRIDGE IVPUSH (05:27)
[2022-11-22 05:29] VITALS: BP 145/43; PULSE 60; RESP 21; TEMP 36.6; O2SAT 95
--- NOTE | 2022-11-22 05:38 | PC.NURSE ---
discharge instructions given and explained to pt no apparent distress ambulates safely/independently a bedside IV cath intact uponn removal
== END 2022-11-22 05:39 | disposition home or self-care (01) ==
PROVIDERS: Emergency Provider Emergency Medicine
DX: N13.2 Hydronephrosis with renal and ureteral calculous obstruction (principal)
CPT/HCPCS: 36415; 74176; 80048; 80076; 81001; 83690; 85025; 96361; 96374; 96375; 99284; 99285; J1885; J2270; J2405

== ENCOUNTER 2022-12-20 14:29 | Outpatient (REF) | payer OTHER, SELFPAY ==
[2022-12-26 20:53] LABS: Stone Source KIDNEY STONE
== END 2022-12-20 14:30 | disposition home or self-care (01) ==
LOC: HO.LNP 14:29
PROVIDERS: PCP Physician Assistant; Visit Provider Nurse Practitioner Family
DX: N20.1 Calculus of ureter (principal); N20.0 Calculus of kidney; N28.1 Cyst of kidney, acquired; Z79.899 Other long term (current) drug therapy
CPT/HCPCS: 82365; 88300

== ENCOUNTER 2023-01-23 12:11 | Outpatient (AMB) | payer OTHER, SELFPAY ==
--- NOTE | 2023-01-23 14:47 | AM.OFFWIN_ITS ---
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 Patient Tobacco Use Status: Never used Tobacco Allergies No Known Allergies [No Known Allergies*] Allergy (Unverified 01/23/23 14:55) Do you need a note to return to daycare/school/sports/work: No HPI HPI Comments History of Present Illness Details 1506 62-year-old male presents to the clinic for evaluation of right ear discomfort for the past few days worsening, patient reports a fullness sensation and discomfort constantly in both ears X few weeks almost a month. L ear hurts more than right ear but left ear has better hearing than the right ear., he feels like there is something in there he describes as feels like cotton ball is stuck in there . Patient denies recent swimming. Patient denies headache, vision changes, dizziness, nausea, vomiting, abdominal pain chest pain, shortness of breath, fevers and chills. PE W/ erythematous and bulging L ear canal and TM with some cerumen in ear canal. No pain w/ manipulation of left ear. R ear with erythematous ear canal and cerumen impaction making it hard to visualize TM on right. No mastoid tenderness b/l. Plan- irrigation Likely otitis media on left and possible on right. No signs of necrotizing otitis, otitis externa, mastoiditis. Cerumen impaction likely causing decreased hearing on right. Plan augmentin po bid x 10 days # 20 Educated patient on diagnosis and treatment plan, answered all question, patient verbalizes understanding. At this time patient will be discharged home, advised to return with new or worsening symptoms. Educated on worrisome signs and symptoms and when to return. At this time I feel comfortable discharge home. [facility] Medical History Hypertension Social History Alcohol intake: current Alcohol intake frequency: holidays/special occasions only Patient Tobacco Use Status: Never used Tobacco Review of Systems Const Details: Constitutional : No Weight loss, No Fever, No Chills, No Fatigue, No Malaise ENT/Mouth : No sore throat, No Rhinorrhea, + ear discomfort Eyes: No Eye Pain, No Swelling, No Redness Cardiovascular : No Chest Pain, No SOB, No Dyspnea on Exertion, No Orthopnea, No Edema, No Palpitations Respiratory : No Cough, No Sputum, No Wheezing Gastrointestinal : No Nausea, No Vomiting, No Diarrhea, No Constipation, No abdominal Pain, No Hematochezia, No Melena Genitourinary : No Dysuria, No Urinary Frequency, No Hematuria, Musculoskeletal : No joint pain, No Myalgias, No Joint Swelling Skin : No Skin Lesions, No rash Neuro : No Weakness, No Numbness, No Dizziness, No Headache Psych : No Anxiety/Panic, No Depression All other systems reviewed and are negative All systems reviewed & are unremarkable except as noted in HPI and below Physical Exam Vital Signs: Last Vital Signs Temp 97.7 F 01/23/23 14:53 Pulse 64 01/23/23 14:53 BP 130/78 01/23/23 14:53 Pulse Ox 98 01/23/23 14:53 Oxygen Delivery Method Room Air 01/23/23 14:53 vss Appearance: Alert.? Oriented X3.? No acute distress.? Head: Normocephalic, atraumatic, no step-offs or deformities Eyes: Pupils equal, round and reactive to light.? ENT: Pharynx normal.?+ erythematous and bulging L ear canal and TM with some cerumen in ear canal. No pain w/ manipulation of left ear. R ear with erythematous ear canal and cerumen impaction making it hard to visualize TM on right. No mastoid tenderness b/l. Neck: Normal inspection.? Neck supple.? CVS: Normal heart rate and rhythm.? Pulses normal.? Respiratory: No respiratory distress.? Breath sounds normal.? Abdomen: Soft and nontender.? Skin: Skin warm and dry.? Normal skin color.? Normal skin turgor.? Extremities: No lower extremity edema.? No calf ttp. 5/5 strength to bilateral upper and lower extremities Back: No midline tenderness, no C-spine tenderness, full range of motion, no CVA tenderness bilaterally Neuro: Oriented X 3.? No motor deficit.? No sensory deficit. CN 2-12 intact Assessment & Plan Assessment & Plan (1) Otitis media: Code(s): H66.90 - Otitis media, unspecified, unspecified ear (2) Cerumen impaction: Code(s): H61.20 - Impacted cerumen, unspecified ear Plan Take your medications as prescribed. If you were prescribed antibiotics today, it is important that you take your medication to their entirety, do not skip any doses, do not finish them early. Follow-up with your primary care provider this week. Return to the emergency department with new or worsening symptoms. Such as fevers, chills, chest pain, shortness of breath, nausea, vomiting, dizziness, headache, vision changes, lethargy In case of emergency call 911 Medications: New amoxicillin-pot clavulanate 875-125 mg 1 tab PO BID 20 tabs 0RF 10 days Coding Level of Care Code Est Pt Level 3 (34560) Diagnoses Otitis media H66.90 Cerumen impaction H61.20
[2023-01-23 14:53] VITALS: BP 130/78; PULSE 64; TEMP 36.5; O2SAT 98
== END 2023-01-23 16:37 | disposition home or self-care (01) ==
PROVIDERS: PCP Physician Assistant; Visit Provider Physician Assistant
DX: H66.90 Otitis media, unspecified, unspecified ear (principal); H61.21 Impacted cerumen, right ear
CPT/HCPCS: 99213

== ENCOUNTER 2023-03-26 11:26 | Outpatient (AMB) | payer OTHER, SELFPAY ==
--- NOTE | 2023-03-26 11:33 | MHC.OFFWIV ---
Intake Vital Signs 03/26/23 11:34 Height 5 ft 5 in Weight 220 lb BMI 36.6 BP 140/80 H Blood Pressure Location Rt brachial Position Sitting Pulse 76 Pulse Source Pulse Oximeter Temp 98.1 F Temp Source Oral Pulse Oximetry (%) 96 Oxygen Delivery Method Room Air Intake Visit Reasons: EP SOB/Cough/Fever [phone] Intake Note: Patient here for very bad cough, sob, fevers, body aches, mild headaches for about 3 days. Patient Tobacco Use Status: Never used Tobacco Allergies No Known Allergies [No Known Allergies*] Allergy (Unverified 03/26/23 11:33) Do you need a note to return to daycare/school/sports/work: Yes HPI EP SOB/Cough/Fever [phone] HPI Details 62-year-old male patient comes in today for sick visit. Reports this is his 4th day of severe cough, low-grade fever, body aches, headache, and occasional wheezing. Has been treating at home with Fredrick. Took a COVID test at home which was negative. Denies any GI symptoms. Denies any known exposure to sick contacts. [facility] Medical History Hypertension Social History Alcohol intake: current Alcohol intake frequency: holidays/special occasions only Patient Tobacco Use Status: Never used Tobacco Review of Systems Const All systems reviewed & are unremarkable except as noted in HPI and below Physical Exam Vital Signs: Last Vital Signs Temp 98.1 F 03/26/23 11:34 Pulse 76 03/26/23 11:34 BP 140/80 H 03/26/23 11:34 Pulse Ox 96 03/26/23 11:34 Oxygen Delivery Method Room Air 03/26/23 11:34 BMI result Body Mass Index 36.6 Const General: cooperative and ill appearing acutely HEENT Head: Yes normal to inspection Ears: hearing grossly normal bilaterally, external ears normal and TM's normal bilaterally General nose exam: Normal external nose present Face and sinus: Yes sinus tenderness (Frontal and maxillary) Mouth: Normal oral and palatal mucosa present Throat: Yes posterior oropharynx abnormal (Mild erythema) and Yes postnasal drainage Neck Neck: Yes no lymphadenopathy Resp Effort & Inspection: Actively coughing Quality: actively coughing Auscultation: wheezes scattered wheezes and upper bilaterally Cardio Jugular venous distension: no JVD Palpation: normal PMI Rate: regular rate Rhythm: regular rhythm Skin General skin exam: no rashes or lesions noted Extrem General: Yes capillary refill normal and Yes no clubbing, cyanosis or edema Psych Appearance: grossly normal Mental Status: mental status grossly normal Speech and movement: Normal speech and movement present Office Procedures Nebulizer Treatment Nebulizer Treatment [id number]/MDI RX initial, or Nebulizer Subsequent Treatment Office Meds ipratropium 0.5 mg-albuterol 3 mg (2.5 mg base)/3 mL nebulization soln Performing Provider: YASMANY Coleman Performing Location: [facility] Administered by: Michelle Marte RN on 03/26/23 12:15 Dose Route Admin Location Dispensed Lot Number Expiration Date 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 Proper return demonstration. Assessment & Plan Assessment & Plan (1) Wheezing: Code(s): R06.2 - Wheezing Plan: Patient has likely viral URI. Swab obtained. Patient aware he will be notified with results once these are available. His cough is quite severe, and he had some scattered wheezes in the upper lobes. He received a DuoNeb treatment in the office today with good effect, and audibly fewer wheezing following nebulizer treatment. We reviewed a short course of prednisone, benzonatate prn, and a p.r.n. albuterol inhaler for treatment. Reviewed indications, use, possible side effects of all medications. Discussed ongoing conservative measures including increased hydration, Tylenol/Motrin as needed, and rest. If he does not improve with time and treatment, a symptoms worsen, he should return to the clinic for further evaluation or go to the ER. He verbalizes understanding and agrees to plan. (2) Upper respiratory infection: Code(s): J06.9 - Acute upper respiratory infection, unspecified Qualifiers: URI type: unspecified viral URI Qualified Code(s): J06.9 - Acute upper respiratory infection, unspecified Orders: Orders AMB Nebulizer Treatment Today R06.2 - Wheezing SARS-CoV2/FLU/RSV Today R06.2 - Wheezing Coding Level of Care Code Est Pt Level 3 (05012) Diagnoses Wheezing R06.2 Viral upper respiratory tract infection J06.9 URI type: unspecified viral URI CPT Codes Nebulizer Treatment - Nebulizer Treatment, initial or subsequent: [id number]/MDI RX initial, or Nebulizer Subsequent Treatment ([id number])
[2023-03-26 11:34] VITALS: BP 140/80; PULSE 76; TEMP 36.7; O2SAT 96; BMI 36.6
== END 2023-03-26 12:24 | disposition home or self-care (01) ==
PROVIDERS: PCP Physician Assistant; Visit Provider Nurse Practitioner Family
DX: R06.2 Wheezing (principal); J06.9 Acute upper respiratory infection, unspecified
CPT/HCPCS: 94640; 99213; J7620

== ENCOUNTER 2023-03-26 12:00 | Outpatient (REF) | payer OTHER, SELFPAY ==
[2023-03-26 14:37] LABS: Influenza A PCR NEGATIVE (Negative); Influenza B PCR NEGATIVE (Negative); Resp Syncy Virus RNA Qual PCR NEGATIVE (Negative); SARS COV2 PCR INHOUSE NEGATIVE (Negative)
== END 2023-03-26 12:01 | disposition home or self-care (01) ==
LOC: HO.LAB 12:00
PROVIDERS: Visit Provider Nurse Practitioner Family
DX: R06.2 Wheezing (principal); Z20.822 Contact with and (suspected) exposure to COVID-19
CPT/HCPCS: 0241U

== ENCOUNTER 2023-06-11 15:20 | Outpatient (REF) | payer OTHER, SELFPAY ==
--- NOTE | ~2023-06-11 | US_ITS ---
EXAMINATION: US RETROPERITONEAL LIMITED (RENAL ONLY) CLINICAL INFORMATION: Calculus of kidney. COMPARISON: CT abdomen and pelvis without contrast 11/22/2022. TECHNIQUE: Real-time imaging of the kidneys. FINDINGS: RIGHT KIDNEY: 12.9 x 6.2 x 6.3 cm (SAG x AP x TRV). The kidney is normal in size, contour, and echogenicity. Renal cortical thickness is normal. No renal calculi or hydronephrosis. Benign-appearing renal cysts measuring up to 3.4 cm. No follow-up imaging is recommended. LEFT KIDNEY: 13.4 x 5.9 x 5.7 cm (SAG x AP x TRV). The kidney is normal in size, contour, and echogenicity. Renal cortical thickness is normal. No renal calculi or hydronephrosis. Benign-appearing renal cysts measuring up to 2.0 cm. No follow-up imaging is recommended. US/US renal BI IMPRESSION: No hydronephrosis or nephrolithiasis.
== END 2023-06-11 15:21 | disposition home or self-care (01) ==
LOC: HO.HMGCX 15:20
PROVIDERS: PCP Physician Assistant; Visit Provider Nurse Practitioner Family
DX: N20.0 Calculus of kidney (principal); N28.1 Cyst of kidney, acquired
CPT/HCPCS: 76775

== ENCOUNTER 2023-06-20 13:41 | Outpatient (AMB) | payer OTHER, SELFPAY ==
--- NOTE | 2023-06-20 14:06 | MHC.OFFVIS ---
Intake Intake Visit Reasons: 6m follow up/US(set) Intake Note: Patient is present for follow up visit uteral stone/ultrasound (imaging 06/11/23) Urology Medications: Vitamin B6 Blood Thinner: none Pot Tender Required: No Accompanied by: Unknown Allergies No Known Allergies [No Known Allergies*] Allergy (Unverified 06/20/23 14:40) Medication List - Last Reconciled 06/20/23 by DONG Nathan albuterol sulfate 90 mcg/actuation (Ventolin HFA) 1 inh inhalation QID PRN amlodipine-benazepril 5-20 mg 1 cap PO DAILY benzonatate 100 mg PO BID-TID PRN fenofibrate 160 mg PO DAILY indapamide 1.25 mg PO DAILY levothyroxine 200 mcg PO DAILY levothyroxine mcg PO owyjshwpzphp-dacioqwf-ekyjhf 1 tab PO DAILY omeprazole 20 mg PO DAILY pyridoxine (vitamin B6) 100 mg PO DAILY 90 days tamsulosin 0.4 mg PO DAILY 14 days HPI HPI Comments History of Present Illness Details Fco is a pleasant 63-year-old male patient of who was accompanied by significant other at today's visit. He has a past medical history of hypertension. He presents to the office today for follow-up of his nephrolithiasis and renal cyst. In discussion with the patient today reports to be doing and feeling well. He denies any bothersome urinary issues or concerns. Recent renal imaging results reviewed with the patient today. Bilateral kidneys with no calculi, and or hydronephrosis. Right kidney with benign-appearing renal cysts measuring up to 3.4 cm. Left kidney with benign-appearing renal cysts measuring up to 2.0 cm. No follow-up imaging is recommended per radiology report. He denies urinary urgency, urinary frequency, incontinence, nocturia, hematuria, dysuria, foul smelling urine, changes to urinary stream, flank pain, fever, and or chills. He is happy with his current voiding parameters. He does report urinary dribbling. Discussed core strengthening to assist with urinary dribbling. He otherwise offers no issues or concerns at this time. In office urinalysis results reviewed with the patient today. When asked he reports to be following up with PSAs with PCP. [facility] Medical History Hypertension Social History Alcohol intake: current Alcohol intake frequency: holidays/special occasions only Patient Tobacco Use Status: Never used Tobacco Review of Systems Const Reports no additional complaints Eyes Reports no additional complaints ENT Reports no additional complaints Card Reports as per HPI Resp Reports no additional complaints GI Reports no additional complaints Reports as per HPI Musc Reports no additional complaints Neuro Reports no additional complaints Psych Reports no additional complaints Endo Reports no additional complaints Cory/Lymph Reports no additional complaints Aller/Immun Reports no additional complaints Physical Exam Const General: cooperative, healthy appearing, comfortable, no acute distress, well developed, alert and awake Nutritional Appearance: average body habitus Orientation/consciousness: patient oriented x3 Limitations: no limitations HEENT Head: Yes normal to inspection, Yes normocephalic and Yes atraumatic Ears: hearing grossly normal bilaterally Eyes General: appearance normal, both eyes and all related structures Neck Neck: Yes normal visual inspection and Yes trachea midline Chest Chest palpation & inspection: normal inspection of the chest Resp Effort & Inspection: normal respiratory effort and able to speak in complete sentences Cardio Rate: regular rate GI Inspection: Yes normal to inspection General: Yes no CVA tenderness Back/Spine/Pelvis Back: no CVA tenderness Skin General skin exam: no rashes or lesions noted Neuro General: patient oriented x3 Extrem General: Yes normal to inspection Psych Appearance: grossly normal and well kempt Mental Status: mental status grossly normal Speech and movement: Normal speech and movement present and Clear speech present Affect: normal affect Attitude: cooperative Thought process: Normal thought process present Thought content: Normal thought content present Insight: Good insight present (Psych) Judgement: Good judgement present (Psych) Results AMB Urinalysis, Automated UA Leukoctes 0 Patrizia/uL Last Edit by Hari Seldon Corporationjeramie Rodas on 06/20/23 14:29 UA Nitrite Negative Last Edit by Elke Rodas on 06/20/23 14:29 UA Urobilinogen 0.2 mg/dL Last Edit by Elke Rodas on 06/20/23 14:29 UA Protein 0 mg/dL Last Edit by Elke Rodas on 06/20/23 14:29 UA pH 7.0 Last Edit by Elke Rodas on 06/20/23 14:29 UA Blood 0 Barrett/uL Last Edit by Elke Francejannie on 06/20/23 14:29 UA Specific [place] 1.015 Last Edit by Elke Rodas on 06/20/23 14:29 UA Ketone Negative Last Edit by Elke Francejannie on 06/20/23 14:29 UA Bilirubin 0 mg/dL Last Edit by Elke Rodas on 06/20/23 14:29 UA Glucose 0 mg/dL Last Edit by Elke Francejannie on 06/20/23 14:29 Results Reviewed Results Reviewed: Date of Service: 06/11/23 EXAMINATION: US RETROPERITONEAL LIMITED (RENAL ONLY) FINDINGS: RIGHT KIDNEY: 12.9 x 6.2 x 6.3 cm (SAG x AP x TRV). The kidney is normal in size, contour, and echogenicity. Renal cortical thickness is normal. No renal calculi or hydronephrosis. Benign-appearing renal cysts measuring up to 3.4 cm. No follow-up imaging is recommended. LEFT KIDNEY: 13.4 x 5.9 x 5.7 cm (SAG x AP x TRV). The kidney is normal in size, contour, and echogenicity. Renal cortical thickness is normal. No renal calculi or hydronephrosis. Benign-appearing renal cysts measuring up to 2.0 cm. No follow-up imaging is recommended. IMPRESSION: No hydronephrosis or nephrolithiasis. Assessment & Plan Assessment & Plan (1) Renal cyst: Code(s): N28.1 - Cyst of kidney, acquired (2) Left nephrolithiasis: Code(s): N20.0 - Calculus of kidney Plan In office urinalysis results reviewed with the patient today; as noted above. Patient denies any bothersome urinary issues or concerns at this time. Recent renal imaging results reviewed with the patient today; as noted above. Continue vitamin B6 as discussed and prescribed. Discussed and stressed the importance of drinking increased amounts of water daily. Discussed adding 1 oz of lemon juice to water daily. Discussed further nephrolithiasis workup with 24 hour urine and labs however patient declines at this time Will obtain renal ultrasound in 1 year Follow-up in 1 year with imaging to be completed prior; or sooner with any issues, concerns, and or questions. Orders: Orders AMB Urinalysis Automated Today Z13.9 - Encounter for screening, unspecified US renal BI 364 Days N20.0 - Calculus of kidney Patient Instructions: The patient had an opportunity to ask questions regarding the treatment plan. All questions were answered. Physical exam, labs, and imaging were discussed and reviewed in detail. As well as risks, benefits, and discussion of treatment choices. No major barriers to understanding were identified. The patient expressed understanding and agreement with the above treatment plan. The patient was made aware they should contact our office by phone for worsening of their current condition, the appearance of new symptoms, or with any questions or concerns. Compliance is encouraged with any medications and follow up testing that is ordered. It is a privilege to be allowed the opportunity to participate in? your urological care.? Again, if you have any questions or concerns If you have any questions or concerns please do not hesitate to contact me. The office is [phone]. This note is constructed using voice recognition software. While every effort has been made to ensure accuracy material stockkeeper yard errors may have been included. Yours sincerely, DONG Nathan Coding Level of Care Code Est Pt Level 3 (78669) Diagnoses Renal cyst N28.1 Left nephrolithiasis N20.0
== END 2023-06-20 14:42 | disposition home or self-care (01) ==
PROVIDERS: PCP Physician Assistant; Visit Provider Nurse Practitioner Family
DX: N28.1 Cyst of kidney, acquired (principal); N20.0 Calculus of kidney; Z13.9 Encounter for screening, unspecified
CPT/HCPCS: 99213

== ENCOUNTER → 2023-06-20 13:41 | Outpatient (BNVA) | payer OTHER, SELFPAY | PROVIDERS: PCP Physician Assistant; Visit Provider Nurse Practitioner Family | DX: N20.0 Calculus of kidney (principal); N28.1 Cyst of kidney, acquired | CPT/HCPCS: 81003 ==

== ENCOUNTER 2024-06-21 14:33 | Outpatient (REF) | payer OTHER, SELFPAY | END 2024-06-21 14:34 | disposition home or self-care (01) | LOC: HO.HMGCX 14:33 | PROVIDERS: Visit Provider Nurse Practitioner Family | DX: N20.0 Calculus of kidney (principal) | CPT/HCPCS: 76775 ==

== ENCOUNTER 2024-07-22 15:30 | Outpatient (AMB) | payer OTHER, SELFPAY ==
--- NOTE | 2024-07-22 15:43 | A.OFFVIS_ITS ---
Intake Visit Reasons: 1y/US Intake Note: Patient presents today for follow up on: renal cyst and nephrolithiasis * Imaging completed: 06/21/24 Urology Medications: Vitamin B6 Blood Thinner: none Print Color Matcher Required: No Accompanied by: Unknown Allergies No Known Allergies [No Known Allergies*] Allergy (Unverified 07/22/24 20:33) Medication List - Last Reconciled 07/22/24 by DONG Nathan albuterol sulfate 90 mcg/actuation (Ventolin HFA) 1 inh inhalation QID PRN amlodipine-benazepril 5-20 mg 1 cap PO DAILY fenofibrate 160 mg PO DAILY indapamide 1.25 mg PO DAILY levothyroxine 200 mcg PO DAILY levothyroxine mcg PO nwclgwntgjoh-slukauxf-nyusoo 1 tab PO DAILY omeprazole 20 mg PO DAILY pyridoxine (vitamin B6) 100 mg PO DAILY 90 days HPI Comments Details: Fco is a pleasant 64-year-old male patient of who was accompanied by significant other at today's visit. He has a past medical history of hypertension. He presents to the office today for follow-up of his nephrolithiasis and renal cysts. In discussion with the patient today reports to be doing and feeling well. He denies any bothersome urinary issues or concerns. Recent renal imaging results reviewed with the patient today. Bilateral kidneys with no calculi, and or hydronephrosis. Right kidney with benign-appearing renal cysts measuring up to 2.9 cm. Left kidney with benign-appearing renal cysts measuring up to 1.6 cm. No follow-up imaging is recommended per radiology report. He denies urinary urgency, urinary frequency, incontinence, nocturia, hematuria, dysuria, foul smelling urine, changes to urinary stream, flank pain, fever, and or chills. He is happy with his current voiding parameters. He reports compliance with vitamin B6 as prescribed. He otherwise offers no issues or concerns at this time. In office urinalysis results reviewed with the patient today. When asked he reports to be following up with PSAs with PCP. [facility] Medical History Hypertension Social History Alcohol intake: current Alcohol intake frequency: holidays/special occasions only Patient Tobacco Use Status: Never used Tobacco Review of Systems Const Reports no additional complaints Eyes Reports no additional complaints ENT Reports no additional complaints Card Reports as per HPI Resp Reports no additional complaints GI Reports no additional complaints Reports as per HPI Musc Reports no additional complaints Neuro Reports no additional complaints Psych Reports no additional complaints Endo Reports no additional complaints Cory/Lymph Reports no additional complaints Aller/Immun Reports no additional complaints Physical Exam Const General: cooperative, healthy appearing, comfortable, no acute distress, well developed, alert and awake Nutritional Appearance: average body habitus Orientation/consciousness: patient oriented x3 Limitations: no limitations HEENT Head: Yes normal to inspection, Yes normocephalic and Yes atraumatic Ears: hearing grossly normal bilaterally Eyes General: appearance normal, both eyes and all related structures Neck Neck: Yes normal visual inspection and Yes trachea midline Chest Chest palpation & inspection: normal inspection of the chest Resp Effort & Inspection: normal respiratory effort and able to speak in complete sentences Cardio Rate: regular rate GI Inspection: Yes normal to inspection General: Yes no CVA tenderness Back/Spine/Pelvis Back: no CVA tenderness Skin General skin exam: no rashes or lesions noted Neuro General: patient oriented x3 Extrem General: Yes normal to inspection Psych Appearance: grossly normal and well kempt Mental Status: mental status grossly normal Speech and movement: Normal speech and movement present and Clear speech present Affect: normal affect Attitude: cooperative Thought process: Normal thought process present Thought content: Normal thought content present Insight: Fair insight present (Psych) Judgement: Fair judgement present (Psych) Assessment & Plan Assessment & Plan (1) Renal cyst: Code(s): N28.1 - Cyst of kidney, acquired Category: Medical (2) Left nephrolithiasis: Code(s): N20.0 - Calculus of kidney Category: Medical Plan In office urinalysis results reviewed with the patient today; as noted above. Patient denies any bothersome urinary issues or concerns at this time. Recent unoffical renal imaging results reviewed with the patient today; as noted above. Continue vitamin B6 as discussed and prescribed. Discussed and stressed the importance of drinking increased amounts of water daily. Discussed adding 1 oz of lemon juice to water daily. Will obtain renal ultrasound in 6 months. Follow-up in 6 months with imaging to be completed prior; or sooner with any issues, concerns, and or questions. Orders: Orders US renal BI 6 Months N20.0 - Calculus of kidney AMB Urinalysis Automated Today Z13.9 - Encounter for screening, unspecified Patient Instructions: The patient had an opportunity to ask questions regarding the treatment plan. All questions were answered. Physical exam, labs, and imaging were discussed and reviewed in detail. As well as risks, benefits, and discussion of treatment choices. No major barriers to understanding were identified. The patient expressed understanding and agreement with the above treatment plan. The patient was made aware they should contact our office by phone for worsening of their current condition, the appearance of new symptoms, or with any questions or concerns. Compliance is encouraged with any medications and follow up testing that is ordered. It is a privilege to be allowed the opportunity to participate in? your urological care.? Again, if you have any questions or concerns If you have any questions or concerns please do not hesitate to contact me. The office is [phone]. This note is constructed using voice recognition software. While every effort has been made to ensure accuracy men's custom hair piece consultant errors may have been included. Yours sincerely, DONG Nathan Coding Level of Care Code Est Pt Level 3 (96042) Diagnoses Renal cyst N28.1 Left nephrolithiasis N20.0
--- OUTSIDE RECORDS SUMMARY | 2024-07-22 16:55 | XMS_ITS | Continuity of Care Document ---
Author Organization [facility] [place] [facility] Address [address] [place] [address]- Care Team Providers Care Unleavened Dough Mixer Name Role Phone Alem Payton Primary Care Physician Encounter [facility] [place] ACCT R [id number] Date(s): 06/15/24 - 07/15/24 [facility] Adult [address] [place] [address]- Encounter Type: Triage Allergies, Adverse Reactions, Alerts Substance Criticality Severity Reaction Reaction Severity Status gabapentin Unable to assess criticality Persistent Moderate Active Immunizations Given and Recorded Vaccine Date Status Refusal Reason SARS-CoV-2 (COVID-19) mRNA BNT-162b2 vac 07/05/21 Recorded SARS-CoV-2 (COVID-19) mRNA BNT-162b2 vac 11/10/20 Recorded SARS-CoV-2 (COVID-19) mRNA BNT-162b2 vac 10/20/20 Recorded influenza virus vaccine, inactivated 06/23/11 Give n Medications Alcohol Pads See Instructions, # 100 each, Refills 3, Tot. Refills 3, Maintenance, Check once a day and as needed for signs and symptoms of low and high Blood glucose and/or on sick day s as needed. Dx Code E11.9T2DM, 10/06/23 1:46:00 PM EDT, Supply, 169.6, cm, 09/19/23 10:09:00 EST, Height Start Date: 10/06/23 Status: Ordered Quantity: 100.0 Unit: each Repeat number: 4 amlodipine-benazepril 5 mg-20 mg oral capsule 1 capsule, By Mouth, Daily, # 90 capsule, 3 Refills, Maintenance, 01/23/24 9:48:00 AM EDT, [facility] # 302, 90, 1 capsule By Mouth Daily, 169.6, cm, 01/22/24 9:54:00 EDT, Height Start Date: 01/23/24 Status: Ordered Quantity: 90.0 Unit: capsule Repeat number: 4 Centrum Silver By Mouth, Daily, 0 Refills, Maintenance, 09/23/18 5:25:39 PM EDT Start Date: 09/23/18 Status: Ordered Repeat number: 1 fenofibrate 160 mg oral tablet 1 tablet, By Mouth, Daily, # 90 tablet, 3 Refills, Maintenance, 09/19/23 3:28:00 PM EST, [facility] # 302, 169.6, cm, 09/19/23 10:09:00 EST, Height Start Date: 09/19/23 Status: Ordered Quantity: 90.0 Unit: tablet Repeat number: 4 FreeStyle Vinod 2 Monitor See Instructions, # 1 each, Refills 0, Tot. Refills 0, Maintenance, use to check blood sugar. Dx E11.9 T2DM, 09/24/23 9:16:00 AM EDT, Supply, 169.6, cm, 09/19/23 10:09:00 EST, Height Start Date: 09/24/23 Status: Ordered Quantity: 1.0 Unit: each Repeat number: 1 FreeStyle Vinod 2 Sensors See Instructions, # 6 each, Refills 3, Tot. Refills 3, Maintenance, Replace every 14 days; use to check blood sugar. Dx E11.9 T2DM, 09/24/23 9:16:00 AM EDT, Supply, 169.6, cm, 09/19/23 10:09:00 EST, Height Start Date: 09/24/23 Status: Ordered Quantity: 6.0 Unit: each Repeat number: 4 Freestyle Lite Lancets See Instructions, # 1 each, Refills 3, Tot. Refills 3, Maintenance, Check once a day and as needed for signs and symptoms of low and high Blood glucose and/or on sick day s as needed. Dx Code E11.9 T2DM, 10/06/23 1:46:00 PM EDT, this brand or another one that is covered under insurance, Supply, 169.6, cm, 09/19/23 10:09:00 EST, Height Start Date: 10/06/23 Status: Ordered Quantity: 1.0 Unit: each Repeat number: 4 Freestyle Lite Monitor See Instructions, # 1 each, Refills 0, Tot. Refills 0, Maintenance, Check once a day and as needed for signs and symptoms of low and high Blood glucose and/or on sick day s as needed. Dx Code E11.9 T2DM, 10/06/23 1:46:00 PM EDT, this brand or another one that is covered under insurance, Supply, 169.6, cm, 09/19/23 10:09:00 EST, Height Start Date: 10/06/23 Status: Ordered Quantity: 1.0 Unit: each Repeat number: 1 Freestyle Lite Test Strips See Instructions, # 100 each, Refills 3, Tot. Refills 3, Maintenance, Check once a day and as needed for signs and symptoms of low and high Blood glucose and/or on sick day s as needed. Dx Code E11.9T2DM, 10/06/23 1:46:00 PM EDT, this glucometer brand or another one that is covered [facility] insurance., Supply, 169.6, cm, 09/19/23 10:09:00 EST, Height Start Date: 10/06/23 Status: Ordered Quantity: 100.0 Unit: each Repeat number: 4 indapamide 1.25 mg oral tablet 1 tablet, By Mouth, Daily in AM, # 90 tablet, 3 Refills, Maintenance, 01/23/24 9:48:00 AM EDT, [facility], 169.6, cm, 01/22/24 9:54:00 EDT, Height Start Date: 01/23/24 Status: Ordered Quantity: 90.0 Unit: tablet Repeat number: 4 levothyroxine 0.025 mg oral tablet See Instructions, TAKE 1 TABLET BY MOUTH ON FRIDAY AND FRIDAY . TAKE WITH 200 MCG TABLETS FOR A TOTAL DOSE OF 225 MCG ON MONDAYS AND THURSDAYS, # 12 tablet, 0 Refills, Maintenance, 06/16/24 7:07:00 AM EST, [facility] #[id number], 169.6, cm, 01/22/24 9:54:00 EDT, Height Start Date: 06/16/24 Status: Ordered Quantity: 12.0 Unit: tablet Repeat number: 1 metFORMIN 500 mg oral tablet 1 tablet, By Mouth, 2 times a day, # 180 tablet, 3 Refills, Maintenance, 01/23/24 9:48:00 AM EDT, [facility] # [facility], 169.6, cm, 01/22/24 9:54:00 EDT, Height Start Date: 01/23/24 Stop Date: 01/17/25 Status: Ordered Quantity: 180.0 Unit: tablet Repeat number: 4 omeprazole 20 mg oral enteric coated capsule 1 capsule, By Mouth, Daily, # 90 capsule, 0 Refills, Maintenance, 04/19/24 9:41:00 AM EDT, [facility] #[id number], 169.6, cm, 01/22/24 9:54:00 EDT, Height Start Date: 04/19/24 Status: Ordered Quantity: 90.0 Unit: capsule Repeat number: 1 sildenafil 25 mg oral tablet 1 tablet = 25 mg, By Mouth, Daily, 1 hour before sexual activity, # 10 tablet, 5 Refills, Maintenance, 01/23/24 9:48:00 AM EDT, Tablet, [facility] # [facility], Partial fill upon patient request if the prescription is for a schedule II opioid drug., 169.6, cm, 01/22/24 9:54:00 EDT, Height Start Date: 01/23/24 Status: Ordered Quantity: 10.0 Unit: tablet Repeat number: 6 Vitamin D3 oral tablet 1 tablet = 10 mcg, By Mouth, Daily, 0 Refills, Maintenance, 03/29/21 10:54:00 AM EDT, Partial fill upon patient request if the prescription is for a schedule II opioid drug. Start Date: 03/29/21 Status: Ordered Repeat number: 1 Problem List Condition Confirmation Course Effective Dates [...] comorbidity Confirmed Active Mild TBI Confirmed Active Type 2 diabetes mellitus Confirmed Active Social History Social History Type Response Smoking Status Cigars or pipes uriel y within last 30 days; Use: Cigars 2 a week Quit tobacco 15 years ago entered on: 03/29/21 Sex Sex Representation Male (finding) Patient Care team information Care Team Personnel Name: Ese Rodríguez RN Position: [facility] AMB Nurse Member Role: Primary Care Nurse Name: Sharee Guillen Position: [facility] Outreach Member Role: Lifetime Consulting Physician Name: Mattie Gonzalez RN Position: [facility] Rad RN Member Role: Primary Care Nurse Name: Alem Payton Position: [facility] PCO Associate Professional Member Role: PCP Address: [address] [place] [address] Telecom: Care Team Related Persons Name: JACKLYN BAILEY Name: JACKLYN WHTIE Insurance Providers Guarantor name: MELIDA WHITE Health Plan Information #: 1 Payer: [facility] Member Number: NA Policy Number: NA Group Number: NA
== END 2024-07-22 16:28 | disposition home or self-care (01) ==
PROVIDERS: PCP Physician Assistant; Visit Provider Nurse Practitioner Family
DX: N28.1 Cyst of kidney, acquired (principal); N20.0 Calculus of kidney
CPT/HCPCS: 99213

== ENCOUNTER 2025-01-27 15:22 | Outpatient (REF) | payer BC, SELFPAY ==
--- NOTE | ~2025-01-27 | US_ITS ---
EXAMINATION: US KIDNEY BILATERAL HISTORY: N20.0 - Calculus of kidney TECHNIQUE: Real-time grayscale ultrasound imaging of the kidneys was performed and images were reviewed. COMPARISON: Comparison is made with the prior examination dated 06/21/2024. FINDINGS: Right kidney: The right kidney measures 13.1 x 6.3 x 6.2 cm. Renal parenchymal echotexture and thickness are normal. Multiple cysts are noted in the interpolar region measuring 3.3 x 2.8 x 3.0 cm and 1.8 x 1.8 x 1.8 cm and at the lower pole measuring 2.0 x 1.6 x 1.6 cm. There is no hydronephrosis or renal calculi. Left Kidney: The left kidney measures 13.4 x 6.4 x 6.5 cm. Renal parenchymal echotexture and thickness are normal. Multiple upper pole cysts are noted measuring 1.9 x 1.6 x 1.9 cm and 1.5 x 1.7 x 1.6 cm. There is no hydronephrosis or renal calculi. US/US renal BI IMPRESSION: Bilateral renal cysts as described. No calculi are identified. Electronically signed by: Jaydon Lopez MD 01/28/2025 07:03 AM EDT
--- OUTSIDE RECORDS SUMMARY | 2025-01-27 16:00 | XMS_ITS | Clinical Summary ---
Author Organization [facility] Address [address] [place] [address] Care Team Providers Care Vice President Of Communications Name Role Phone Pcp, No Primary Care Provider Unavailabl e Allergies No known active allergies Medications amLODIPine-priyank zepril (LOTREL 2.5-10) 2.5-10 MG per capsule 01/17/2020 Acti ve OMEprazole (PriLOSEC) 20 MG capsule Take 20 mg by mouth every morning before breakfast. Active Wheat Dextrin (BENEFIBER PO) Take by mouth. Active Active Problems No known active problems Social History Tobacco Use Types Packs/Day Years Used Date Smoking Tobacco: Former Smokeless Tobacco: Current Comments:15 years ago quit c ig, on cigars now Alcohol Use Standard Drinks/Week Comments Yes 0 (1 standard drink = 0.6 oz pur e alcohol) Sex and Gender Information Value Date Recorded Sex Assigned at Not on file Legal Sex Male 1:22 PM EDT Gender Identity Not on file Sexual Orientation Not on file Last Filed Vital Signs Vital Sign Reading Time Taken Comments Blood Pressure - - Pulse - - Temperature - - Respiratory Rate - - Oxygen Saturation - - Inhaled Oxygen Concentration - - Weight 104 kg (230 lb) 02/10/2020 11:40 AM EDT Height 172.7 cm (5' 8 ) 02/10/2020 11:40 AM EDT Body Mass Index 34.97 02/10/2020 11:40 AM EDT Plan of Treatment Health Maintenance Due Date Last Done Comments Hepatitis C Virus Screening 1959 HIV Screening 1972 DTaP/Tdap/Td Vaccines (1 - Tdap) 1978 Colonoscopy 2004 Pneumococcal Vaccines 50+ (1 of 1 - PCV) 2009 Zoster (Shingles) Vaccine (1 of 2) 2009 COVID-19 Vaccine (2023-2 5 season) 2024 Influenza Vaccine 02/11/2025 RSV Vaccine 60 years and old er and Patients (1 - 1-dose 75+ series) 2034 Hepatitis B Vaccines Aged Out No long er eligible based on patient's age to complete this topic Insurance [facility] Member Subscriber Plan / Payer (Ef fective 2018-Present) Name:Fco Barth Relation to Subscriber:Self Name:Fco Barth Payer ID:Not on file Group ID:Not on file Type:Not on file Address: [address] [employer] Care Teams Vice President Of Communications Relationship Specialty Start Date End Date Pcp, No PCP - General General Medicine 02/10/20
== END 2025-01-27 15:23 | disposition home or self-care (01) ==
LOC: HO.HMGCX 15:22
PROVIDERS: PCP Physician Assistant; Visit Provider Nurse Practitioner Family
DX: N20.0 Calculus of kidney (principal)
CPT/HCPCS: 76775

== ENCOUNTER → 2025-01-27 15:24 | Outpatient (BNV) | payer BC, SELFPAY | PROVIDERS: PCP Physician Assistant; Visit Provider Radiology Diagnostic Radiology | DX: N20.0 Calculus of kidney (principal) | CPT/HCPCS: 76775 ==

== ENCOUNTER 2025-02-09 14:48 | Outpatient (AMB) | payer BC, SELFPAY ==
--- NOTE | 2025-02-09 14:58 | A.OFFVIS_ITS ---
Intake Visit Reasons: 6M/US(pending 01/27) Intake Note: Patient is present for 6M/US Urology Medication:VITAMIN B6 Antibiotic Allergy:NONE Blood Thinner:NONE Long Term Care Phlebotomist Required: No Allergies No Known Allergies (No Known Allergies*) Allergy (Verified 02/09/25 16:31) Medication List - Last Reconciled 02/09/25 by DONG Nathan albuterol sulfate 90 mcg/actuation (Ventolin HFA) 1 inh inhalation QID PRN amlodipine-benazepril 5-20 mg 1 cap PO DAILY fenofibrate 160 mg PO DAILY indapamide 1.25 mg PO DAILY levothyroxine 200 mcg PO DAILY levothyroxine mcg PO [id number] 1 tab PO DAILY omeprazole 20 mg PO DAILY pyridoxine (vitamin B6) 100 mg PO DAILY 90 days HPI Comments Details: Fco is a pleasant 64-year-old male patient of who was accompanied by significant other at today's visit. He has a past medical history of hypertension. He presents to the office today for follow-up of his nephrolithiasis and renal cysts. In discussion with the patient today reports to be doing and feeling well. He denies any bothersome urinary issues or concerns. Recent renal imaging results reviewed with the patient today. 02/04 bilateral kidneys with no hydronephrosis or renal calculi. Bilateral renal cysts are noted. He denies urinary urgency, urinary frequency, incontinence, nocturia, hematuria, dysuria, foul smelling urine, changes to urinary stream, flank pain, fever, and or chills. He is happy with his current voiding parameters. He reports compliance with vitamin B6 as prescribed. He otherwise offers no issues or concerns at this time. In office urinalysis results reviewed with the patient today. Previously patient had reported following up with his PCP for annual prostate monitoring however he is requesting PSA be obtained. He reports he has been drinking plenty of water daily as well as adding 1 oz of lemon juice to water daily. He otherwise offers no other issues or concerns at this time. [facility] Medical History Hypertension Social History Alcohol intake: current Alcohol intake frequency: holidays/special occasions only Patient Tobacco Use Status: Never used Tobacco Review of Systems Const Reports no additional complaints Eyes Reports no additional complaints ENT Reports no additional complaints Card Reports as per HPI Resp Reports no additional complaints GI Reports no additional complaints Reports as per HPI Musc Reports no additional complaints Neuro Reports no additional complaints Psych Reports no additional complaints Endo Reports no additional complaints Cory/Lymph Reports no additional complaints Aller/Immun Reports no additional complaints Physical Exam Const General: cooperative, healthy appearing, comfortable, no acute distress, well developed, alert and awake Nutritional Appearance: average body habitus Orientation/consciousness: patient oriented x3 Limitations: no limitations HEENT Head: Yes normal to inspection, Yes normocephalic and Yes atraumatic Ears: hearing grossly normal bilaterally Eyes General: appearance normal, both eyes and all related structures Neck Neck: Yes normal visual inspection and Yes trachea midline Chest Chest palpation & inspection: normal inspection of the chest Resp Effort & Inspection: normal respiratory effort and able to speak in complete sentences Cardio Rate: regular rate GI Inspection: Yes normal to inspection General: Yes no CVA tenderness Back/Spine/Pelvis Back: no CVA tenderness Skin General skin exam: no rashes or lesions noted Neuro General: patient oriented x3 Extrem General: Yes normal to inspection Psych Appearance: grossly normal and well kempt Mental Status: mental status grossly normal Speech and movement: Normal speech and movement present and Clear speech present Affect: normal affect Attitude: cooperative Thought process: Normal thought process present Thought content: Normal thought content present Insight: Fair insight present (Psych) Judgement: Fair judgement present (Psych) Results AMB Urinalysis, Automated UA Leukoctes 0 Patrizia/uL Last Edit by JONATHAN Smith on 02/09/25 16:01 UA Nitrite Negative Last Edit by JONATHAN Smith on 02/09/25 16:01 UA Urobilinogen 0.2 mg/dL Last Edit by JONATHAN Smith on 02/09/25 16:0 1 UA Protein 15 mg/dL Last Edit by JONATHAN Smith on 02/09/25 16:01 UA pH 6.0 Last Edit by JONATHAN Smith on 02/09/25 16:01 UA Blood 0 Barrett/uL Last Edit by JONATHAN Smith on 02/09/25 16:01 UA Specific [place] 1.015 Last Edit by JONATHAN Smith on 02/09/25 16: 01 UA Ketone Negative Last Edit by JONATHAN Smith on 02/09/25 16:01 UA Bilirubin 0 mg/dL Last Edit by JONATHAN Smith on 02/09/25 16:01 UA Glucose 0 mg/dL Last Edit by JONATHAN Smith on 02/09/25 16:01 Results Reviewed Results Reviewed: Laboratory Last Values Urine pH (Auto) 6.0 02/09/25 15:59 Specific [place] (Auto) 1.015 02/09/25 15:59 Urine Protein (Auto) 15 mg/dL 02/09/25 15:59 Glucose (UA)(Auto) 0 mg/dL 02/09/25 15:59 Urine Ketones (Auto) Negative 02/09/25 15:59 Urine Blood (Auto) 0 Barrett/uL 02/09/25 15:59 Urine Nitrite (Auto) Negative 02/09/25 15:59 Urine Bilirubin (Auto) 0 mg/dL 02/09/25 15:59 Urine Urobilinogen (Auto) 0.2 mg/dL 02/09/25 15:59 Leukocyte Esterase (Auto) 0 Patrizia/uL 02/09/25 15:59 Date of Service: 01/27/25 Procedure(s): US renal BI FINDINGS: Right kidney: The right kidney measures 13.1 x 6.3 x 6.2 cm. Renal parenchymal echotexture and thickness are normal. Multiple cysts are noted in the interpolar region measuring 3.3 x 2.8 x 3.0 cm and 1.8 x 1.8 x 1.8 cm and at the lower pole measuring 2.0 x 1.6 x 1.6 cm. There is no hydronephrosis or renal calculi. Left Kidney: The left kidney measures 13.4 x 6.4 x 6.5 cm. Renal parenchymal echotexture and thickness are normal. Multiple upper pole cysts are noted measuring 1.9 x 1.6 x 1.9 cm and 1.5 x 1.7 x 1.6 cm. There is no hydronephrosis or renal calculi. IMPRESSION: Bilateral renal cysts as described. No calculi are identified. Assessment & Plan Assessment & Plan (1) Left nephrolithiasis: Code(s): N20.0 - Calculus of kidney Category: Medical (2) Renal cyst: Code(s): N28.1 - Cyst of kidney, acquired Category: Medical Plan In office urinalysis results reviewed with the patient today; as noted above. Recent renal imaging results reviewed with the patient today; as noted above. He currently denies any bothersome urinary issues or concerns. Will obtain PSA for further assessment evaluation. Continue vitamin B6. Continue adding 1 oz of lemon juice to water daily. We discussed the importance of adequate hydration inrelation to nephrolithiasis as well as overall health and well-being. Will obtain renal ultrasound in 6 months Follow-up in 6 months with imaging and lab to be completed prior; or sooner with any issues, concerns, and or questions. Orders: Orders Prostate Specific Antigen Today N40.0 - Benign prostatic hyperplasia without lower urinary tract symptoms US renal BI 6 Months N20.0 - Calculus of kidney, N28.1 - Cyst of kidney, acquired AMB Urinalysis Automated Today Z13.9 - Encounter for screening, unspecified Patient Instructions: The patient had an opportunity to ask questions regarding the treatment plan. All questions were answered. Physical exam, labs, and imaging were discussed and reviewed in detail. As well as risks, benefits, and discussion of treatment choices. No major barriers to understanding were identified. The patient expressed understanding and agreement with the above treatment plan. The patient was made aware they should contact our office by phone for worsening of their current condition, the appearance of new symptoms, or with any questions or concerns. Compliance is encouraged with any medications and follow up testing that is ordered. It is a privilege to be allowed the opportunity to participate in? your urological care.? Again, if you have any questions or concerns If you have any questions or concerns please do not hesitate to contact me. The office is [phone]. This note is constructed using voice recognition software. While every effort has been made to ensure accuracy over hauler helper errors may have been included. Yours sincerely, DONG Nathan Coding Level of Care Code Est Pt Level 3 (66727) Complex EM visit Add On G2211 Diagnoses Left nephrolithiasis N20.0 Renal cyst N28.1
--- OUTSIDE RECORDS SUMMARY | 2025-02-09 15:30 | XMS_ITS | Clinical Summary ---
Author Organization [facility] Address [address] [place] [address] Care Team Providers Care Channeler Outsole Name Role Phone Pcp, No Primary Care [...] patient's age to complete this topic Insurance [facility] [facility] [employer] Member Subscriber Plan / Payer (Ef fective 2018-Present) Name:Fco Barth Relation to Subscriber:Self Name:Fco Barth Payer ID:Not on file Group ID:Not on file Type:Not on file Address: [address] [employer] Care Teams Channeler Outsole Relationship Specialty Start Date End Date Pcp, No PCP - General General Medicine 02/10/20
--- OUTSIDE RECORDS SUMMARY | 2025-02-09 15:30 | XMS_ITS | Clinical Summary ---
[place] [address] Care Team Providers Care Towerman Name Role Phone Unavailable Primary Care Provider Unavailabl e Social History Tobacco Use Types Packs/Day Years Used Date Smoking Tobacco: Never Assessed Sex and Gender Information Value Date Recorded Sex Assigned at Not on file Legal Sex Male 10:41 AM EDT Gender Identity Not on file Sexual Orientation Not on file Plan of Treatment Health Maintenance Due Date Last Done Comments CT Colonography 1959 Colonoscopy 1959 Colorectal Cancer Screening 1959 FIT DNA 1959 FIT 1959 Sigmoidoscopy (10 year) with FIT yearly 1959 Sigmoidoscopy 1959 HIV screen 1977 Hepatitis C Screening 1977 Lipid Screening 1977 Tetanus/Diphtheria/Pertussis Vaccines (1 - Tdap) 03/31 Pneumoccocal Vaccine: 50+ (1 of 1 - PCV) 2009 Zoster vaccine (1 of 2) 2009 Advance Directive 2014 Covid-19 Vaccine (1 - 2023- season) 2024 Influenza (Flu) vaccine (1 o f 1 - Influenza standard series) 03/14/2025 Insurance [facility]
== END 2025-02-09 15:38 | disposition home or self-care (01) ==
LOC: HO.HUSH 14:49
PROVIDERS: PCP Physician Assistant; Visit Provider Nurse Practitioner Family
DX: N20.0 Calculus of kidney (principal); N28.1 Cyst of kidney, acquired; Z13.9 Encounter for screening, unspecified
CPT/HCPCS: 99213

== ENCOUNTER → 2025-02-09 14:48 | Outpatient (BNVA) | payer BC, SELFPAY | PROVIDERS: PCP Physician Assistant; Visit Provider Nurse Practitioner Family | DX: I10 Essential (primary) hypertension (principal) | CPT/HCPCS: 81003 ==